=== PATIENT | male | born 1965 | race Caucasian/White ===

== ENCOUNTER 2016-07-27 06:37 | Day surgery (SDC) | payer OTHER ==
[2016-07-27] MEDS ORDERED: EPINEPHRINE 1:1000 1 ML AMP ONE (06:47)
[2016-07-27] MEDS ORDERED: Lactated Ringers 1,000 ML IV ONE (06:47)
[2016-07-27] MEDS ORDERED: Marcaine 0.5% SDV 10 ML ONE (06:48)
[2016-07-27] MEDS ORDERED: XYLOCAINE 1%/Epi 1:100000 MDV 20 ML ONE (06:48)
[2016-07-27] MEDS ORDERED: Pepcid 20 MG VIAL IV ONE (07:20)
[2016-07-27] MEDS ORDERED: Lactated Ringers 1,000 ML IV SCH (07:30)
[2016-07-27] MEDS ORDERED: CEFAZOLIN 2 GM-D5W BAG** 50 ML IV SCH (07:30)
[2016-07-27] MEDS ORDERED: Ephedrine Sulfate 50 MG/ML IJ ONE (08:00)
[2016-07-27] MEDS ORDERED: SUBLIMAZE 100 MCG/2 ML IV ONE (08:00)
[2016-07-27] MEDS ORDERED: TORAdol 30 mg Injection IJ ONE (08:00)
[2016-07-27] MEDS ORDERED: DIPRIVAN 200 MG/20 ML IV ONE (08:00)
[2016-07-27] MEDS ORDERED: Decadron 4 MG INJ IV ONE (08:00)
[2016-07-27] MEDS ORDERED: Zofran 4 MG/2 ML VIAL IV ONE (08:00)
--- NOTE | 2016-07-27 08:37 | XRAY ---
Indication: Preop exam. Comparison: None Bilateral AP and lateral left knee obtained weightbearing demonstrates joint spaces preserved. Tiny left patellar spurring and faint vascular calcifications bilaterally. No other bony, articular, or soft tissue abnormalities.
[2016-07-27] MEDS ORDERED: ON-Q PUMP 1 in Marcaine Mpf 0.5% Vial 30 Ml*** 270 ML IV SCH (10:15)
[2016-07-27] MEDS ORDERED: SUBLIMAZE 100 MCG/2 ML ONE (10:36)
[2016-07-27 11:21] VITALS: O2SAT 92
--- NOTE | 2016-07-27 11:32 | OP ---
SURGERY DATE/TIME: 07/27/2016911 PREOPERATIVE DIAGNOSIS: Internal derangement of the left knee. POSTOPERATIVE DIAGNOSES: 1) Medial meniscus tear left knee. 2) Lateral meniscal tear left knee. 3) Chondromalacia patella left knee. PROCEDURES: 1) Left knee arthroscopy with debridement of medial meniscus. 2) Left knee arthroscopy with debridement of lateral meniscus. 3) Left knee arthroscopy with chondroplasty patella. 4) Long leg splint. 5) On-Q pump catheter postoperative pain. SURGEON: Marcio Gardner D.O. DOUBLE BACKER: None. ANESTHESIA: General per MEDICAL BILLING AND CODING SPECIALIST. ESTIMATED BLOOD LOSS: Minimal. DESCRIPTION OF PROCEDURE: The patient is taken to the operative suite and placed in supine position, given a general anesthetic, placed supine. Areas were well padded. Sterile prepped and draped left leg. Tourniquet applied, inflated, exsanguinated to 50. Suprapatellar area entered with Egress cannula, 0.5% Marcaine, 1% Lidocaine with epinephrine 60 cc placed into the knee. Infralateral aspect of the knee entered with camera and inflow established there. Spinal needle stab incision and shaver placed over the medial joint line and diagnostic arthroscopy begun. The meniscal tissue was assessed. Both tears were seen radial in type. Posteriorly ACL was intact. Chondral surface of the patella on either side of medial and lateral patellar facets were softened and required tightening over a 10 mm area probably outer bridge changes of 1 maybe 2 at the most on both poles of the patella laterally and medially. After tightening these up with ArthroCare device at a #7 setting, pictures were taken. Probe is done. I turned attention to the menisci and trimmed these both up with punch forceps and the posterior horns into the red-white zones and umair and then cleaned these up and remanded these to the back table. The knee was drained of saline. On-Q pump catheter is placed in separate entry point astride the medial joint line in an extra-articular position. Ethilon suture placed in the portal sites. Long leg splint applied. Burleson compressive dressing and Cryo/Cuff.
[2016-07-27 12:21] VITALS: BP 142/92; PULSE 80
== END 2016-07-27 12:10 | disposition home or self-care (01) ==
LOC: SDC 06:37
PROVIDERS: ATTEND Orthopaedic Surgery
PROC: 0SQD4ZZ Repair Left Knee Joint, Percutaneous Endoscopic Approach (ICD-10-PCS; principal; 2016-07-27)
DX: M23.92 Unspecified internal derangement of left knee (principal); S83.242A Other tear of medial meniscus, current injury, left knee, initial encounter; S83.282A Other tear of lateral meniscus, current injury, left knee, initial encounter; M22.42 Chondromalacia patellae, left knee; M25.562 Pain in left knee
CPT/HCPCS: 01382; 73560; J0171; J0690; J1100; J1885; J2405; J2704; J3010; L1830

== ENCOUNTER 2017-04-21 12:44 | Emergency (ER) | payer OTHER ==
[2017-04-21 12:55] VITALS: O2SAT 96
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
[2017-04-21 13:12] VITALS: BP 134/91; PULSE 74
== END 2017-04-21 13:21 | disposition home or self-care (01) ==
LOC: ED 12:44
DX: I86.4 Gastric varices (principal)
CPT/HCPCS: 99281

== ENCOUNTER 2018-06-21 15:10 | Observation (INO) | payer OTHER ==
[2018-06-21] MEDS ORDERED: Sodium Chloride 0.9% 1000 ML 1,000 ML ONE ×2 (15:41→17:09)
[2018-06-21] MEDS ORDERED: Sodium Chloride 0.9% 1000 ML 1,000 ML IV STA ×2 (15:44→15:46)
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
[2018-06-21 16:00] LABS: BASOPHIL % 0.2 % (0.0-0.4); Basophil (Absolute #) 0.01 (0-0.4); Eosinophil % 2.4 % (0.00-5.0); Eosinophil (Absolute #) 0.12 (0-0.5); Granulocyte Absolute (ANC) 3.11 (1.4-6.9); Granulocytes % 63.4 % (36.0-66.0); Hematocrit 42.3 % (42-50); Hemoglobin 14.6 gm/dl (12.5-18.0); Lymphocyte (Absolute #) 1.28 (1.0-4.6); Lymphocytes % 26.1 % (24.0-44.0); Mean Cell Volume 96.6 fl (78-100); Mean Corpuscular Hemoglobin 33.3 pg (26-32); Mean Corpuscular Hgb Concent. 34.5 g/dl (32-36); Mean Platelet Volume 11.2 fl (6-9.5); Monocyte (Absolute #) 0.39 (0.0-1.3); Monocytes % 7.9 % (0.0-12.0); Platelet Count 115 K/mm3 (150-450); Red Blood Count 4.38 M/mm3 (4.1-5.6); Red Cell Distribution Width 11.6 % (11.5-14.0); White Blood Count 4.9 K/mm3 (4.0-10.5)
[2018-06-21 16:09] LABS: ALBUMIN 3.7 g/dL (3.5-5.0); ALKALINE PHOSPHATASE 108 U/L (38-126); ANION GAP 16.7 MEQ/L (5-15); BLOOD UREA NITROGEN 10 mg/dL (9-20); CHLORIDE 88 mmol/L (98-107); Calcium 9.5 mg/dL (8.4-10.2); Carbon Dioxide 28 mmol/L (22-30); Creatinine 1 0.53 mg/dL (0.66-1.25); Potassium 4.8 mmol/L (3.5-5.1); SGOT/AST 81 U/L (17-59); SGPT/ALT 69 U/L (0-50); SODIUM 129 mmol/L (137-145); Total Protein 7.1 g/dL (6.3-8.2)
[2018-06-21 16:23] LABS: ETHYL ALCOHOL < 10 mg/dL (0-10); Glucose 753 mg/dL (74-106)
[2018-06-21 16:23] LABS: Appearance CLEAR (CLEAR); Bilirubin NEGATIVE (NEGATIVE); Blood NEGATIVE Ery/ul (0-5); Glucose >=500 mg/dL (NEGATIVE); Ketones TRACE (NEGATIVE); Leukocyte Esterase NEGATIVE (NEGATIVE); Nitrite NEGATIVE (NEGATIVE); Protein,Urine Dip NEGATIVE (Negative); Specific Gravity 1.025 (1.005-1.025); Urobilinogen NEGATIVE mg/dL (0-1)
[2018-06-21 17:05] LABS: VBG BASE EXCESS 1.3 (-2.0-2.0); VBG CARBOXYHEMOGLOBIN 2.7 % T HGB (0.0-6.9); VBG HCO3- 28.5 meq/L (22-28); VBG POTASSIUM 4.6 (3.5-5.1); VBG pH 7.33 (7.32-7.42)
[2018-06-21] MEDS ORDERED: NovoLIN R IV ONE (18:29)
[2018-06-21] MEDS ORDERED: NovoLIN R ONE (18:34)
[2018-06-21] MEDS ORDERED: Sodium Chloride 0.9% 1000 ML 1,000 ML IV SCH (21:15)
[2018-06-21] MEDS: NovoLOG Insulin SQ PRN (22:15)
[2018-06-22] MEDS: NovoLOG Insulin SQ PRN ×2 (00:18→04:27)
[2018-06-22 05:58] LABS: BASOPHIL % 0.3 % (0.0-0.4); Basophil (Absolute #) 0.02 (0-0.4); Eosinophil % 3.3 % (0.00-5.0); Eosinophil (Absolute #) 0.23 (0-0.5); Granulocyte Absolute (ANC) 3.67 (1.4-6.9); Granulocytes % 52.7 % (36.0-66.0); Hematocrit 39.8 % (42-50); Hemoglobin 13.9 gm/dl (12.5-18.0); Lymphocyte (Absolute #) 2.47 (1.0-4.6); Lymphocytes % 35.4 % (24.0-44.0); Mean Cell Volume 95.7 fl (78-100); Mean Corpuscular Hemoglobin 33.4 pg (26-32); Mean Corpuscular Hgb Concent. 34.9 g/dl (32-36); Mean Platelet Volume 10.9 fl (6-9.5); Monocyte (Absolute #) 0.58 (0.0-1.3); Monocytes % 8.3 % (0.0-12.0); Platelet Count 126 K/mm3 (150-450); Red Blood Count 4.16 M/mm3 (4.1-5.6); Red Cell Distribution Width 11.4 % (11.5-14.0)
[2018-06-22 06:15] LABS: ALBUMIN 3.2 g/dL (3.5-5.0); ALKALINE PHOSPHATASE 79 U/L (38-126); ANION GAP 11.8 MEQ/L (5-15); BLOOD UREA NITROGEN 6 mg/dL (9-20); CHLORIDE 101 mmol/L (98-107); Calcium 8.8 mg/dL (8.4-10.2); Carbon Dioxide 26 mmol/L (22-30); Creatinine 1 0.37 mg/dL (0.66-1.25); Glucose 225 mg/dL (74-106); Potassium 3.2 mmol/L (3.5-5.1); SGOT/AST 73 U/L (17-59); SGPT/ALT 62 U/L (0-50); SODIUM 136 mmol/L (137-145); Total Protein 6.6 g/dL (6.3-8.2)
[2018-06-22 07:23] VITALS: BP 114/68; PULSE 80
--- NOTE | 2018-06-22 07:55 | PCM.DCORD ---
- Discharge Discharge Date: 06/22/18 Condition: Good Prescriptions: No Action Duloxetine HCl [Cymbalta] 30 mg DAILY predniSONE [Prednisone] 5 mg DAILY Follow up with: JOHN WOO [Primary Care Provider] - 1 Week
[2018-06-22] MEDS ORDERED: Glucophage 500 MG PO SCH (08:00)
--- NOTE | 2018-06-22 08:14 | SSS ---
DISCHARGE DIAGNOSIS: NEW ONSET DIABETES MELLITUS WITH HYPEROSMOLAR STATE. HISTORY: The patient is a 52 year-old white male patient who apparently had been feeling bad over the past three weeks, being very thirsty and having very much increase in urination. He reports he lost approximately 15 pounds over that time frame. He apparently was sent to the lab for lab studies and was found to have a sugar over 600. He was therefore contacted and asked to proceed to the emergency room for evaluation and treatment. He was subsequently admitted to the hospital for IV fluids and diabetic management. By the morning of 06/22/2018 the patient's blood sugar was down to 225. His BUN was 6, creatinine 0.37, potassium 3.2, sodium 136. His liver enzymes are slightly elevated with an AST of 73 and ALT of 62. His CBC was normal. PAST MEDICAL HISTORY: Otherwise remarkable for no significant medical problems. HOME MEDICATIONS: Duloxetine 30 mg a day, prednisone for rheumatoid arthritis at 5 mg daily. ALLERGIES: ERYTHROMYCIN BASE. PHYSICAL EXAMINATION: On initial evaluation on admission his temperature was 98.8F, pulse 89, respiratory rate 12, blood pressure 111/67. O2 saturation 95%. HEENT: Normocephalic, atraumatic. Pupils equal round reactive to light. Extraocular movements intact. Oropharynx is dry. NECK: Supple without lymphadenopathy, thyromegaly or JVD. CHEST: Clear to auscultation with good air movement bilaterally. HEART: Regular rate and rhythm without murmurs, rubs or gallops. ABDOMEN: Soft. No hepatosplenomegaly or masses. EXTREMITIES: Without clubbing, cyanosis or edema. NEUROLOGIC: The patient is alert and oriented x3. LAB DATA AND TESTS: Other laboratory studies reveal his urine to be clear. Specific gravity 1.025, greater than 500 glucose but is otherwise essentially negative. His sugar by the time he reached the emergency room was 753, BUN 10, creatinine 0.53. He had venous blood gas of 7.33, pCO2 54 and normal CBC. HOSPITAL COURSE: The patient was given IV fluids and insulin bringing his sugar down nicely. He was felt to be ready for discharge home with diabetic education, 2,000 calorie ADA diet, diabetic test strips and an Accu-Chek monitor. He is to be on Metformin 500 mg b.i.d. and check his sugars twice a day. He is given sliding scale coverage for sugars above 300 to take 10 units of subcu and for sugars above 400 to take 20 units. If the sugars get above that he is to call me for further instructions or return to the hospital. He is instructed to stay away from sugary drinks and starches. He will have a return appointment in my office in one week for further evaluation and management.
--- NOTE | 2018-06-22 08:15 | PCM.DCORD ---
- Discharge Discharge Date: 06/22/18 Prescriptions: New Metformin HCl 500 mg [Glucophage 500 MG] 500 mg PO BIDWM 30 Days #60 tablet Insulin Lispro [Humalog] 100 unit SQ UD PRN #100 ml PRN Reason: Hyperglycemia Continue Duloxetine HCl [Cymbalta] 30 mg DAILY predniSONE [Prednisone] 5 mg DAILY Follow up with: JOHN WOO [Primary Care Provider] - 1 Week
[2018-06-22 08:20] VITALS: O2SAT 94
== END 2018-06-22 11:30 | disposition home or self-care (01) ==
LOC: ED 15:10 → MED SURG 21:06
PROVIDERS: ADMIT Family Medicine; ATTEND Family Medicine
DX: E11.9 Type 2 diabetes mellitus without complications (principal); M06.9 Rheumatoid arthritis, unspecified; Z79.899 Other long term (current) drug therapy
CPT/HCPCS: 36000; 36415; 71046; 80053; 81001; 82306; 82805; 82962; 83036; 84403; 84439; 84443; 84681; 85025; 86701; 86702; 87389; 93005; 93041; 93268; 94762; 96360; 96374; 99285; G0378; G0480; 80307; A9270-GY

== ENCOUNTER 2018-12-24 15:41 | Emergency (ER) | payer OTHER ==
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
[2018-12-24 16:59] VITALS: BP 147/86; PULSE 88
[2018-12-24] MEDS ORDERED: TORAdol 30 mg Injection ONE (17:02)
[2018-12-24] MEDS ORDERED: TORAdol 30 mg Injection IV ONE (17:04)
[2018-12-24 17:10] VITALS: O2SAT 97
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
== END 2018-12-24 17:22 | disposition home or self-care (01) ==
LOC: ED 15:41
DX: S01.01XA Laceration without foreign body of scalp, initial encounter (principal); V53.6XXA Passenger in pick-up truck or van injured in collision with car, pick-up truck or van in traffic accident, initial encounter
CPT/HCPCS: 12013; 36000; 70450; 72125; 96374; 99285; J1885

== ENCOUNTER 2019-08-01 10:36 | Emergency (ER) | payer OTHER ==
[2019-08-01 11:36] LABS: Absolute Neutrophil Ct (ANC) 2.96 (1.4-6.9); BASOPHIL % 0.8 % (0.0-0.4); Basophil (Absolute #) 0.05 (0-0.4); Eosinophil % 5.3 % (0.00-5.0); Eosinophil (Absolute #) 0.34 (0-0.5); Hematocrit 46.4 % (42-50); Lymphocyte (Absolute #) 2.22 (1.0-4.6); Lymphocytes % 34.4 % (24.0-44.0); Mean Corpuscular Hemoglobin 34.5 pg (26-32); Mean Corpuscular Hgb Concent. 34.5 g/dl (32-36); Mean Platelet Volume 9.2 fl (7.5-11.0); Monocyte (Absolute #) 0.88 (0.0-1.3); Monocytes % 13.6 % (0.0-12.0); Neutrophil % 45.9 % (36.0-66.0); Platelet Count 153 K/mm3 (150-450); Red Blood Count 4.64 M/mm3 (4.1-5.6); Red Cell Distribution Width 12.5 % (11.5-14.0); White Blood Count 6.5 K/mm3 (4.0-10.5)
[2019-08-01 11:44] LABS: INR 1.09 (0.8-3.0); PROTIME 12.3 SECONDS (8.83-12.87)
[2019-08-01 11:46] LABS: Appearance CLEAR (CLEAR); Bacteria RARE /HPF (NEGATIVE); Bilirubin SMALL (NEGATIVE); Blood NEGATIVE Ery/ul (0-5); Glucose NEGATIVE (NEGATIVE); Hyaline Casts 0-2 /LPF (0-2); Ketones NEGATIVE (NEGATIVE); Leukocyte Esterase NEGATIVE (NEGATIVE); Mucus SLIGHT /HPF (NEGATIVE); Nitrite NEGATIVE (NEGATIVE); Protein,Urine Dip 30 (Negative); Specific Gravity 1.035 (1.005-1.025); Urobilinogen 4 mg/dL (0-1)
[2019-08-01 11:47] LABS: PTT 38.9 SECONDS (24.1-36.1)
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
[2019-08-01 11:52] LABS: ALBUMIN 4.4 g/dL (3.5-5.0); ALKALINE PHOSPHATASE 90 U/L (38-126); ANION GAP 11.5 MEQ/L (5-15); BLOOD UREA NITROGEN 23 mg/dL (9-20); CHLORIDE 107 mmol/L (98-107); Calcium 9.4 mg/dL (8.4-10.2); Carbon Dioxide 28 mmol/L (22-30); Creatinine 1 0.82 mg/dL (0.66-1.25); Glucose 107 mg/dL (74-106); Potassium 4.2 mmol/L (3.5-5.1); SGOT/AST 40 U/L (17-59); SGPT/ALT 25 U/L (0-50); SODIUM 142 mmol/L (137-145); Total Protein 8.4 g/dL (6.3-8.2)
[2019-08-01 12:01] LABS: Barbiturate,Urine NEGATIVE (NEGATIVE); Benzodiazepine,Urine NEGATIVE (NEGATIVE); Cocaine,Urine NEGATIVE (NEGATIVE); Methadone,Urine NEGATIVE (NEGATIVE); Opiate,Urine POSITIVE (NEGATIVE); PCP,Urine NEGATIVE (NEGATIVE); THC,Urine NEGATIVE (NEGATIVE)
--- NOTE | 2019-08-01 12:01 | XRAY ---
Indication: Confusion and weakness. Multiple contiguous axial images obtained through the head without contrast. Comparison: December 24, 2018. Stable mild periventricular degenerative micro-ischemia bilaterally, remote left external capsule lacunar infarct, and small focus old left occipital lobe infarct. New right external capsule remote lacunar infarct. No acute intracranial hemorrhage, abnormal extra-axial fluid collection, or mass effect. Fourth ventricle is midline without hydrocephalus. Bony calvarium intact. Visualized paranasal sinuses and mastoid air cells are clear. Impression: Degenerative micro-ischemia, remote bilateral external capsule lacunar infarcts, and old left occipital lobe infarct. No acute intracranial abnormalities.
--- NOTE | 2019-08-01 12:07 | XRAY ---
Indication: Confusion. Comparison: June 21, 2018. Portable chest again demonstrates normal heart and lungs. Bony thorax intact again with mild degenerative changes. No new/acute findings.
[2019-08-01 12:27] LABS: Amphetamine,Urine POSITIVE (NEGATIVE)
[2019-08-01 13:18] VITALS: O2SAT 96
[2019-08-01] MEDS ORDERED: Rocephin 1000 MG INJ** 1,000 MG in Sodium Chloride 0.9% 100 ML IVPB 100 ML IV ONE (13:27)
[2019-08-01] MEDS ORDERED: BABY ASPIRIN 81 MG CHEW PO ONE (13:28)
[2019-08-01] MEDS ORDERED: Sodium Chloride 0.9% 1000 ML 1,000 ML IV SCH (13:30)
[2019-08-01] MEDS ORDERED: BABY ASPIRIN 81 MG CHEW ONE (13:53)
[2019-08-01] MEDS ORDERED: ROCEPHIN 1 Gm-D5w 50 ml Bag** 1 G/50 ML IVPB IV ONE (13:54)
[2019-08-01] MEDS ORDERED: Sodium Chloride 0.9% 1000 ML 1,000 ML ONE (13:54)
[2019-08-01 14:20] VITALS: PULSE 76
[2019-08-01 17:33] VITALS: BP 118/77
== END 2019-08-01 19:05 | disposition short-term general hospital (02) ==
LOC: ED 10:36
DX: R46.89 Other symptoms and signs involving appearance and behavior (principal); N39.0 Urinary tract infection, site not specified; F19.20 Other psychoactive substance dependence, uncomplicated; Z71.51 Drug abuse counseling and surveillance of drug abuser; R93.0 Abnormal findings on diagnostic imaging of skull and head, not elsewhere classified
CPT/HCPCS: 36000; 36415; 70450; 71045; 80053; 80307; 81001; 82140; 84484; 85025; 85610; 85730; 87086; 93005; 94760; 96365; 99285; J0696; A9270-GY

== ENCOUNTER 2019-08-08 10:28 | Emergency (ER) | payer OTHER ==
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
[2019-08-08 11:08] LABS: Absolute Neutrophil Ct (ANC) 4.29 (1.4-6.9); BASOPHIL % 0.4 % (0.0-0.4); Basophil (Absolute #) 0.03 (0-0.4); Eosinophil % 4.9 % (0.00-5.0); Eosinophil (Absolute #) 0.38 (0-0.5); Hematocrit 42.3 % (42-50); Hemoglobin 15.1 gm/dl (12.5-18.0); Lymphocyte (Absolute #) 2.32 (1.0-4.6); Mean Cell Volume 97.5 fl (78-100); Mean Corpuscular Hemoglobin 34.8 pg (26-32); Mean Corpuscular Hgb Concent. 35.7 g/dl (32-36); Mean Platelet Volume 9.7 fl (7.5-11.0); Monocyte (Absolute #) 0.72 (0.0-1.3); Monocytes % 9.3 % (0.0-12.0); Neutrophil % 55.4 % (36.0-66.0); Platelet Count 164 K/mm3 (150-450); Red Blood Count 4.34 M/mm3 (4.1-5.6); Red Cell Distribution Width 12.5 % (11.5-14.0); White Blood Count 7.7 K/mm3 (4.0-10.5)
--- NOTE | 2019-08-08 11:09 | XRAY ---
Indication: Right facial droop. Stroke like symptoms. Multiple contiguous axial images obtained through the head without contrast. Comparison: August 01, 2019. Stable mild periventricular degenerative micro-ischemia bilaterally, bilateral external capsule remote lacunar infarcts, and small left occipital lobe infarct. No acute intracranial hemorrhage, abnormal extra-axial fluid collection, or mass effect. Fourth ventricle is midline without hydrocephalus. Babin-white matter differentiation is preserved. Bony calvarium intact. Visualized paranasal sinuses and mastoid air cells are clear. Impression: Stable nonacute CT head without contrast exam again demonstrating degenerative micro-ischemia, remote bilateral external capsule lacunar infarcts, and old left occipital lobe infarct. MRI brain may yield further information if there remains further clinical concern.
[2019-08-08 11:11] LABS: ANION GAP 14.1 MEQ/L (5-15); BLOOD UREA NITROGEN 14 mg/dL (9-20); CHLORIDE 102 mmol/L (98-107); Calcium 9.7 mg/dL (8.4-10.2); Carbon Dioxide 27 mmol/L (22-30); Creatinine 1 0.76 mg/dL (0.66-1.25); Glucose 131 mg/dL (74-106); Potassium 3.7 mmol/L (3.5-5.1); SODIUM 139 mmol/L (137-145)
--- NOTE | 2019-08-08 13:37 | XRAY ---
Indication: Right facial drooping. Involuntary facial movements. Sagittal, coronal, and axial MRI brain was performed without contrast using T1, T2, FLAIR, diffusion, and ADC sequences. Comparison: None Several sequences are slightly degraded by motion artifact. Study is still diagnostic. Age-appropriate global atrophy and mild periventricular degenerative micro-ischemia signal bilaterally. Right anterior parietal lobe demonstrates moderate sized focus of periventricular restricted signal on diffusion imaging favoring acute ischemia. Left posterior parietal demonstrates small multifocal cortical and deep white matter restricted signal also favoring acute ischemia. Largest focus 11 mm high left parietal lobe. Old bilateral external capsule lacunar infarcts and old small left occipital lobe infarct. No acute intracranial hemorrhage, abnormal extra-axial fluid collection, or mass effect. Fourth ventricle is midline. 7/8 cranial nerve complex bilaterally symmetric. Temporal segment of the left internal carotid artery demonstrates signal favoring slow sluggish flow. Normal flow void signal within the remaining major intracerebral circulation. Normal appearing craniocervical junction and sella turcica. Paranasal sinuses are clear. Impression: 1. Mild motion artifact. 2. Right anterior parietal acute ischemia as detailed. Smaller multifocal left posterior parietal lobe acute ischemia. No acute hemorrhage/mass effect. Multifocal and bilateral ischemia concerning for embolic stroke. 3. Slow sluggish flow signal left internal carotid artery. 4. Remote appearing bilateral external capsule lacunar infarcts and remote left occipital lobe infarct. 5. Global atrophy and degenerative micro-ischemia within normal limits for patient's age.
[2019-08-08 14:28] VITALS: BP 144/96; PULSE 89; O2SAT 98
[2019-08-08 15:05] LABS: Appearance CLEAR (CLEAR); Bilirubin NEGATIVE (NEGATIVE); Blood NEGATIVE Ery/ul (0-5); Glucose NEGATIVE (NEGATIVE); Ketones NEGATIVE (NEGATIVE); Leukocyte Esterase NEGATIVE (NEGATIVE); Mucus SLIGHT /HPF (NEGATIVE); Nitrite NEGATIVE (NEGATIVE); Protein,Urine Dip NEGATIVE (Negative); Specific Gravity 1.019 (1.005-1.025); Urobilinogen 4 mg/dL (0-1)
[2019-08-08 15:20] LABS: Barbiturate,Urine NEGATIVE (NEGATIVE); Benzodiazepine,Urine NEGATIVE (NEGATIVE); Cocaine,Urine NEGATIVE (NEGATIVE); Methadone,Urine NEGATIVE (NEGATIVE); Opiate,Urine NEGATIVE (NEGATIVE); PCP,Urine NEGATIVE (NEGATIVE); THC,Urine NEGATIVE (NEGATIVE)
[2019-08-08 15:43] LABS: Amphetamine,Urine POSITIVE (NEGATIVE)
== END 2019-08-08 15:18 | disposition left against medical advice (07) ==
LOC: ED 10:28
DX: I67.82 Cerebral ischemia (principal)
CPT/HCPCS: 36000; 36415; 70450; 70551; 80048; 80307; 81001; 85025; 93005; 93041; 94760; 99284; 99291

== ENCOUNTER 2019-08-08 16:03 | Emergency (ER) | payer OTHER ==
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
[2019-08-08 17:57] VITALS: BP 123/64; PULSE 106; O2SAT 93
== END 2019-08-08 18:50 | disposition short-term general hospital (02) ==
LOC: ED 16:03
DX: I63.9 Cerebral infarction, unspecified (principal); I65.29 Occlusion and stenosis of unspecified carotid artery; F15.10 Other stimulant abuse, uncomplicated
CPT/HCPCS: 99284; 99291

== ENCOUNTER 2020-01-17 12:43 | Emergency (ER) | payer OTHER ==
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
[2020-01-17 14:06] LABS: Absolute Neutrophil Ct (ANC) 3.76 (1.4-6.9); BASOPHIL % 0.3 % (0.0-0.4); Basophil (Absolute #) 0.02 (0-0.4); Eosinophil % 2.7 % (0.00-5.0); Eosinophil (Absolute #) 0.18 (0-0.5); Hematocrit 39.3 % (42-50); Hemoglobin 13.3 gm/dl (12.5-18.0); Lymphocyte (Absolute #) 2.04 (1.0-4.6); Lymphocytes % 30.6 % (24.0-44.0); Mean Cell Volume 99.5 fl (78-100); Mean Corpuscular Hemoglobin 33.7 pg (26-32); Mean Corpuscular Hgb Concent. 33.8 g/dl (32-36); Mean Platelet Volume 9.5 fl (7.5-11.0); Monocyte (Absolute #) 0.67 (0.0-1.3); Neutrophil % 56.4 % (36.0-66.0); Platelet Count 104 K/mm3 (150-450); Red Blood Count 3.95 M/mm3 (4.1-5.6); Red Cell Distribution Width 12.4 % (11.5-14.0); White Blood Count 6.7 K/mm3 (4.0-10.5)
--- NOTE | 2020-01-17 14:26 | XRAY ---
Indication: Right arm and left neck swelling. Status post left carotid endarterectomy January 15, 2020. Two-dimensional sonogram and color Doppler imaging of the major venous vessels of the left and right upper extremity performed. Comparison: None No thrombus seen in the visualized left and right internal jugular, subclavian, axillary, cephalic, basilic, brachial, median cubital, radial, and ulnar veins. Veins demonstrate normal compressibility. Venous waveforms are normal. Impression: Left and right upper extremities negative for DVT.
[2020-01-17 14:31] LABS: ALBUMIN 3.4 g/dL (3.5-5.0); ALKALINE PHOSPHATASE 72 U/L (38-126); ANION GAP 7.2 MEQ/L (5-15); BLOOD UREA NITROGEN 10 mg/dL (9-20); CHLORIDE 106 mmol/L (98-107); Calcium 8.6 mg/dL (8.4-10.2); Carbon Dioxide 27 mmol/L (22-30); Creatinine 1 0.53 mg/dL (0.66-1.25); Glucose 122 mg/dL (74-106); NT PRO BNP 378 pg/mL (0-900); Potassium 3.6 mmol/L (3.5-5.1); SGOT/AST 55 U/L (17-59); SGPT/ALT 45 U/L (0-50); SODIUM 137 mmol/L (137-145); Total Protein 6.6 g/dL (6.3-8.2)
[2020-01-17 15:18] VITALS: BP 135/85; PULSE 85; O2SAT 96
== END 2020-01-17 15:27 | disposition home or self-care (01) ==
LOC: ED 12:43
DX: M79.89 Other specified soft tissue disorders (principal); Z46.2 Encounter for fitting and adjustment of other devices related to nervous system and special senses; Z98.890 Other specified postprocedural states; I25.2 Old myocardial infarction; E11.9 Type 2 diabetes mellitus without complications; K21.9 Gastro-esophageal reflux disease without esophagitis; N18.2 Chronic kidney disease, stage 2 (mild); M19.90 Unspecified osteoarthritis, unspecified site
CPT/HCPCS: 36415; 80053; 83880; 84484; 85025; 93005; 93041; 93970; 99284

== ENCOUNTER 2020-06-13 16:15 | Emergency (ER) | payer OTHER ==
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
[2020-06-13 17:21] VITALS: BP 118/75; PULSE 103; O2SAT 98
[2020-06-13 17:52] LABS: INR 1.23 (0.8-3.0); PROTIME 13.9 SECONDS (8.83-12.87)
[2020-06-13 17:56] LABS: ALBUMIN 4.1 g/dL (3.5-5.0); ALKALINE PHOSPHATASE 60 U/L (38-126); ANION GAP 12.3 MEQ/L (5-15); BLOOD UREA NITROGEN 11 mg/dL (9-20); CHLORIDE 103 mmol/L (98-107); Calcium 9.8 mg/dL (8.4-10.2); Carbon Dioxide 25 mmol/L (22-30); Creatinine 1 0.67 mg/dL (0.66-1.25); EST GLOMERULAR FILTRATION RATE > 60.0 ML/MIN; Glucose 218 mg/dL (74-106); Potassium 3.8 mmol/L (3.5-5.1); SGOT/AST 29 U/L (17-59); SGPT/ALT 26 U/L (0-50); SODIUM 137 mmol/L (137-145); Total Protein 7.4 g/dL (6.3-8.2)
[2020-06-13 17:57] LABS: ACETAMINOPHEN < 10 ug/ml (10-30); ETHYL ALCOHOL < 10 mg/dL (0-10); SALICYLATE < 1.0 mg/dL (2-20)
[2020-06-13 17:58] LABS: Absolute Neutrophil Ct (ANC) 3.62 (1.4-6.9); BASOPHIL % 0.3 % (0.0-0.4); Basophil (Absolute #) 0.02 (0-0.4); Eosinophil % 3.4 % (0.00-5.0); Eosinophil (Absolute #) 0.26 (0-0.5); Hematocrit 42.7 % (42-50); Hemoglobin 14.4 gm/dl (12.5-18.0); Lymphocyte (Absolute #) 3.12 (1.0-4.6); Lymphocytes % 40.6 % (24.0-44.0); Mean Cell Volume 97.5 fl (78-100); Mean Corpuscular Hemoglobin 32.9 pg (26-32); Mean Corpuscular Hgb Concent. 33.7 g/dl (32-36); Mean Platelet Volume 9.5 fl (7.5-11.0); Monocyte (Absolute #) 0.67 (0.0-1.3); Monocytes % 8.7 % (0.0-12.0); Platelet Count 163 K/mm3 (150-450); Red Blood Count 4.38 M/mm3 (4.1-5.6); Red Cell Distribution Width 12.4 % (11.5-14.0); White Blood Count 7.7 K/mm3 (4.0-10.5)
[2020-06-13 18:58] LABS: Amphetamine,Urine NEGATIVE (NEGATIVE); Barbiturate,Urine NEGATIVE (NEGATIVE); Benzodiazepine,Urine NEGATIVE (NEGATIVE); Cocaine,Urine NEGATIVE (NEGATIVE); Methadone,Urine NEGATIVE (NEGATIVE); Opiate,Urine NEGATIVE (NEGATIVE); PCP,Urine NEGATIVE (NEGATIVE); THC,Urine NEGATIVE (NEGATIVE)
--- NOTE | 2020-06-13 20:20 | XRAY ---
Exam: CT of the head without IV contrast from 06/13/2020. CTDI: 53.92 mGy Comparison: CT of the head without IV contrast from 08/08/2019 and MRI of the brain without IV contrast from 08/08/2019. Indication: 54-year-old male with confusion, dizziness, lightheadedness, altered mental status/memory loss; patient tripped and fell, but did not hit head. Technique: Non-IV contrast axial images were obtained through the brain. Reconstructed coronal and sagittal images were created and reviewed. Findings: The ventricles are within normal limits of size. No focal mass effect or midline shift is seen. I see no acute intracranial parenchymal hemorrhage, subarachnoid hemorrhage, or abnormal extra-axial fluid collection. Moderate chronic ischemic changes are seen within the periventricular white matter, most pronounced in the right frontal and right parietal white matter. These latter findings are new since the prior CT study of 08/08/2019, although the prior diffusion weighted images of the head MRI from 08/08/2019 suggestive acute ischemic disease within the right frontal and anterior right parietal region at that time. In fact, the prior MRI suggested bilateral multifocal acute ischemic disease, probably embolic. Small bilateral basal ganglia infarcts are again seen. A left occipital lobe infarct is present which appears to be more prominent as compared to 08/08/2019. Nevertheless, this may represent a chronic finding. There is also subtle low-attenuation ischemic change within the periventricular white matter of the upper left cerebral convexity. Correlate clinically as to whether further investigation with a repeat MRI of the brain including diffusion-weighted imaging is needed. Mild generalized cerebral and cerebellar volume loss is present. Vascular calcification is seen within both distal vertebral arteries and the cavernous portion of both internal carotid arteries. The visualized paranasal sinuses appear clear. The orbits appear grossly unremarkable. The mastoid air cells are clear without effusion. The middle ear cavities appear grossly unremarkable. I believe there is some cerumen deep within both external auditory canals. The calvarium of the skull appears intact without evidence of fracture. No other significant bone lesion is seen within the calvarium of the skull. Impression: 1. No acute intracranial bleed is seen. 2. Fairly extensive bilateral ischemic changes are seen within both cerebral hemispheres which I believe are likely chronic. Correlate clinically as to whether further investigation with a follow-up MRI of the brain to include diffusion weighted imaging is needed to exclude a subacute or acute ischemic event superimposed upon chronic changes.
[2020-06-13 20:37] LABS: Appearance CLEAR (CLEAR); Bilirubin NEGATIVE (NEGATIVE); Glucose 250 mg/dL (NEGATIVE); Ketones SMALL-15 (NEGATIVE); Leukocyte Esterase NEGATIVE (NEGATIVE); Nitrite NEGATIVE (NEGATIVE); Protein,Urine Dip NEGATIVE (Negative); Specific Gravity 1.025 (1.005-1.025); Urobilinogen 2 mg/dL (0-1)
[2020-06-13 20:38] LABS: Bacteria NONE SEEN /HPF (NEGATIVE); Blood TRACE NON-HEM Ery/ul (0-5); Epithelial Cells RARE /HPF (FEW); RBC 0-2 /HPF (0-2); WBC 0-2 /HPF (0-5)
== END 2020-06-13 19:48 | disposition home or self-care (01) ==
LOC: ED 16:15
DX: Z04.89 Encounter for examination and observation for other specified reasons (principal)
CPT/HCPCS: 36000; 36415; 70450; 80053; 80307; 81001; 82140; 82947; 85025; 85610; 93005; 93041; 99284; G0480

== ENCOUNTER 2020-07-19 16:04 | Observation (INO) | payer OTHER ==
[2020-07-19] MEDS ORDERED: Sodium Chloride 0.9% 1000 ML 1,000 ML IV STA (16:44)
[2020-07-19] MEDS ORDERED: Sodium Chloride 0.9% 1000 ML 1,000 ML ONE (17:13)
--- NOTE | 2020-07-19 17:20 | XRAY ---
Indication: Dizziness and vision changes. Comparison: August 01, 2019. Portable chest again demonstrates normal heart and lungs. Bony thorax intact with mild degenerative changes and surgical clips left neck. No acute findings.
[2020-07-19 17:37] LABS: Absolute Neutrophil Ct (ANC) 3.58 (1.4-6.9); BASOPHIL % 0.5 % (0.0-0.4); Basophil (Absolute #) 0.03 (0-0.4); Eosinophil % 3.1 % (0.00-5.0); Hematocrit 42.4 % (42-50); Hemoglobin 14.8 gm/dl (12.5-18.0); Lymphocyte (Absolute #) 2.29 (1.0-4.6); Mean Cell Volume 94.9 fl (78-100); Mean Corpuscular Hemoglobin 33.1 pg (26-32); Mean Corpuscular Hgb Concent. 34.9 g/dl (32-36); Monocyte (Absolute #) 0.45 (0.0-1.3); Monocytes % 6.9 % (0.0-12.0); Neutrophil % 54.5 % (36.0-66.0); Platelet Count 162 K/mm3 (150-450); Red Blood Count 4.47 M/mm3 (4.1-5.6); Red Cell Distribution Width 11.8 % (11.5-14.0); White Blood Count 6.6 K/mm3 (4.0-10.5)
[2020-07-19 17:38] LABS: VBG BASE EXCESS 1.8 (-2.0-2.0); VBG HCO3- 28.6 meq/L (22-28); VBG HEMOGLOBIN 15.1; VBG O2 SATURATION 58.1 (95-100); VBG POTASSIUM 4.6 (3.5-5.1); VBG pH 7.34 (7.32-7.42)
[2020-07-19 17:39] LABS: VBG CARBOXYHEMOGLOBIN 8.2 % T HGB (0.0-6.9)
[2020-07-19 17:41] LABS: Appearance CLEAR (CLEAR); Bilirubin NEGATIVE (NEGATIVE); Blood NEGATIVE Ery/ul (0-5); Glucose >=500 mg/dL (NEGATIVE); Ketones NEGATIVE (NEGATIVE); Leukocyte Esterase NEGATIVE (NEGATIVE); Nitrite NEGATIVE (NEGATIVE); Protein,Urine Dip NEGATIVE (Negative); Specific Gravity 1.028 (1.005-1.025); Urobilinogen NEGATIVE mg/dL (0-1)
[2020-07-19 17:45] LABS: ALBUMIN 4.1 g/dL (3.5-5.0); ALKALINE PHOSPHATASE 73 U/L (38-126); ANION GAP 12.7 MEQ/L (5-15); BLOOD UREA NITROGEN 15 mg/dL (9-20); CHLORIDE 96 mmol/L (98-107); Calcium 9.5 mg/dL (8.4-10.2); Carbon Dioxide 28 mmol/L (22-30); Creatinine 1 0.66 mg/dL (0.66-1.25); EST GLOMERULAR FILTRATION RATE > 60.0 ML/MIN; Potassium 4.2 mmol/L (3.5-5.1); SGOT/AST 24 U/L (17-59); SGPT/ALT 24 U/L (0-50); SODIUM 132 mmol/L (137-145); Total Protein 7.1 g/dL (6.3-8.2)
[2020-07-19 17:54] LABS: Glucose 512 mg/dL (74-106)
[2020-07-19] MEDS ORDERED: HUMULIN R IV ONE (18:00)
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
[2020-07-19] MEDS ORDERED: HUMULIN R ONE (18:15)
[2020-07-19] MEDS ORDERED: MORPHINE SULFATE 2 MG INJ IV PRN (19:56)
[2020-07-19] MEDS ORDERED: TYLENOL 325 MG PO PRN (19:56)
[2020-07-19] MEDS ORDERED: Sodium Chloride 0.9% 1000 ML 1,000 ML IV SCH (19:56)
[2020-07-19] MEDS ORDERED: HUMULIN R SQ PRN (19:56)
[2020-07-19] MEDS ORDERED: Zofran 4 MG/2 ML VIAL IV PRN (19:56)
[2020-07-19] MEDS ORDERED: TRANDATE 20 MG/4 ML SYRINGE IV PRN (19:56)
[2020-07-19] MEDS ORDERED: APRESOLINE 20 MG/ML INJ IV PRN (19:56)
--- NOTE | 2020-07-19 21:16 | XRAY ---
Indication: Dizziness, blurred vision, headache, and stroke symptoms. Multiple contiguous axial images obtained through the head without contrast. Comparison: June 13, 2020. Again age-appropriate global atrophy, moderate periventricular degenerative micro-ischemia bilaterally, bilateral external capsule remote lacunar infarcts, and old left occipital lobe infarct. No acute intracranial hemorrhage, abnormal extra-axial fluid collection, or mass effect. Fourth ventricle is midline without hydrocephalus. Bony calvarium intact. Visualized paranasal sinuses and mastoid air cells are clear. Impression: Stable nonacute senile brain including remote bilateral external capsule lacunar infarcts and old left occipital lobe infarct. Comment: Preliminary interpretation was made by [facility]. No critical discrepancy.
[2020-07-19] MEDS ORDERED: Cyclobenzaprine 10 MG PO PRN (21:43)
[2020-07-19] MEDS ORDERED: ENOXAPARIN SODIUM SQ SCH (22:00)
[2020-07-19] MEDS: BUSPAR 5 MG PO SCH (22:26)
[2020-07-19] MEDS: Pepcid 20 MG VIAL IV SCH (22:26)
[2020-07-19] MEDS: Glucophage 500 MG PO SCH (22:26)
[2020-07-20 06:33] LABS: Hematocrit 42.7 % (42-50); Hemoglobin 14.7 gm/dl (12.5-18.0); Mean Cell Volume 96.2 fl (78-100); Mean Corpuscular Hemoglobin 33.1 pg (26-32); Mean Corpuscular Hgb Concent. 34.4 g/dl (32-36); Mean Platelet Volume 10.2 fl (7.5-11.0); Platelet Count 154 K/mm3 (150-450); Red Blood Count 4.44 M/mm3 (4.1-5.6); Red Cell Distribution Width 12.1 % (11.5-14.0); White Blood Count 6.2 K/mm3 (4.0-10.5)
[2020-07-20 06:39] LABS: INR 1.18 (0.8-3.0); PROTIME 13.3 SECONDS (8.83-12.87)
[2020-07-20 06:41] LABS: PTT 34.1 SECONDS (24.1-36.1)
[2020-07-20 06:51] LABS: ALBUMIN 3.9 g/dL (3.5-5.0); ALKALINE PHOSPHATASE 67 U/L (38-126); ANION GAP 10.5 MEQ/L (5-15); BLOOD UREA NITROGEN 14 mg/dL (9-20); CHLORIDE 102 mmol/L (98-107); Calcium 9.2 mg/dL (8.4-10.2); Carbon Dioxide 25 mmol/L (22-30); Creatinine 1 0.62 mg/dL (0.66-1.25); EST GLOMERULAR FILTRATION RATE > 60.0 ML/MIN; Glucose 305 mg/dL (74-106); Potassium 4.1 mmol/L (3.5-5.1); SGOT/AST 25 U/L (17-59); SGPT/ALT 23 U/L (0-50); SODIUM 133 mmol/L (137-145); Total Protein 7.2 g/dL (6.3-8.2)
[2020-07-20 08:27] VITALS: BP 110/66; PULSE 75; O2SAT 93
[2020-07-20] MEDS: Glucophage 500 MG PO SCH (08:43)
[2020-07-20] MEDS: BUSPAR 5 MG PO SCH (09:44)
[2020-07-20] MEDS: Pepcid 20 MG VIAL IV SCH (09:44)
[2020-07-20] MEDS ORDERED: Ecotrin 325 MG PO SCH (10:00)
[2020-07-20] MEDS ORDERED: PLAVIX 75 MG Tablet PO SCH (11:00)
[2020-07-20] MEDS ORDERED: ZOCOR 20MG PO SCH (11:00)
[2020-07-20] MEDS ORDERED: Cymbalta 30 MG Capsule PO SCH (11:00)
[2020-07-20] MEDS ORDERED: NAPROSYN 375 MG PO SCH (11:00)
[2020-07-20] MEDS ORDERED: ANTIVERT 25 MG PO SCH (11:00)
[2020-07-20] MEDS ORDERED: SYNTHROID 50 MCG PO SCH (11:00)
[2020-07-20] MEDS ORDERED: ENOXAPARIN SODIUM SQ SCH (22:00)
[2020-07-21] MEDS ORDERED: ECOTRIN 81 MG PO SCH (10:00)
[2020-07-21] MEDS ORDERED: NON-FORMULARY ITEM (Aspirin [Aspirin] 81 MG) PO SCH (10:00)
[2020-07-21] MEDS ORDERED: NON-FORMULARY ITEM (Rosuvastatin Calcium [Crestor] 40 MG) PO SCH (10:00)
[2020-07-21] MEDS ORDERED: NON-FORMULARY ITEM (Levothyroxine Sodium [Levothyroxine] 50 MCG) PO SCH (10:00)
--- NOTE | 2020-07-22 15:30 | SSS ---
DISCHARGE DIAGNOSIS: DIABETES MELLITUS OUT OF CONTROL. HISTORY: The patient is a 55 year old white male patient who noticed he was getting a little dizzy and having some blurred vision. He checked his sugar and found out it was above 500. He presented to the emergency room for further evaluation and management. Tele-neurology consultation was obtained for concerns about possibility of stroke but it is apparent that the patient is not having any neurologic issues in that fashion. Dizziness and blurred vision was likely due to high sugar levels. The patient is not seen often in the office and I do not believe he is checking his sugars at home very well. HOME MEDICATIONS: Duloxetine 60 mg b.i.d., Buspar 1 tablet b.i.d., Flexeril 10 mg every 8 hours PRN for back pain, Crestor 40 mg a day, aspirin 81 mg a day, Plavix 75 mg a day, levothyroxine 50 mcg a day, meclizine 25 mg t.i.d. PRN for dizziness, Naproxen 375 mg b.i.d. ALLERGIES: ERYTHROMYCIN. PHYSICAL EXAMINATION: The patient's vital signs on admission showed his temperature to be 97.9F, pulse 99, blood pressure 149/91. O2 saturation 98% on room air. HEENT: Normocephalic, atraumatic. Pupils equal round reactive to light. Extraocular movements intact. Oropharynx is pink and moist. NECK: Supple without lymphadenopathy, thyromegaly or JVD. CHEST: Clear to auscultation. HEART: Regular rate and rhythm. ABDOMEN: Soft. No palpable masses. EXTREMITIES: Without cyanosis, clubbing or edema. NEUROLOGIC: The patient is alert and oriented x3. I woke him from sleep. He already had breakfast, feeling good and wishing to go home. LAB DATA AND TESTS: The patient's laboratory studies have shown venous blood gas to be pH 7.34. CBC was entirely normal. UA was normal other than greater than 500 sugar. His glucose was 512 on admission. BUN 15, creatinine 0.66. His sodium was slightly at 132. Electrolytes were otherwise normal as were liver enzymes. Magnesium 1.7. Troponins less than 0.012 on two occasions. Hemoglobin A1C was 10.82. Repeat on his sugar the next morning was 305. His INR was 1.18. He had a CT scan of the head without contrast showing stable, nonacute senile brain with remote bilateral external capsule lacunar infarcts and old left occipital lobe infarct. HOSPITAL COURSE: At this time the patient is felt to be ready for discharge home again. He reports that he will follow up in the office next week. He is instructed to check his sugars at least four times a day. He did not list insulin on his home medication but said that he does have insulin at home. I will be sure he does have some insulin for his use and giving him a sliding scale coverage for him to use as well.
== END 2020-07-20 11:37 | disposition home or self-care (01) ==
LOC: ED 16:04 → MED SURG 19:41
PROVIDERS: ADMIT Family Medicine; ATTEND Family Medicine
DX: E11.65 Type 2 diabetes mellitus with hyperglycemia (principal); H53.8 Other visual disturbances; J44.9 Chronic obstructive pulmonary disease, unspecified; I10 Essential (primary) hypertension; E78.5 Hyperlipidemia, unspecified; Z86.73 Personal history of transient ischemic attack (TIA), and cerebral infarction without residual deficits; Z79.899 Other long term (current) drug therapy; Z79.01 Long term (current) use of anticoagulants; E78.00 Pure hypercholesterolemia, unspecified
CPT/HCPCS: 36000; 36415; 70450; 71045; 80053; 81001; 82805; 82947; 83036; 83735; 84484; 85025; 85027; 85610; 85730; 93005; 93041; 93268; 94762; 96360; 96374; 99285; G0378; Q3014; J1650; J1815; A9270-GY

== ENCOUNTER 2020-10-02 15:56 | Emergency (ER) | payer OTHER ==
[2020-10-02 16:30] LABS: Absolute Neutrophil Ct (ANC) 4.92 (1.4-6.9); BASOPHIL % 0.2 % (0.0-0.4); Basophil (Absolute #) 0.02 (0-0.4); Eosinophil % 4.4 % (0.00-5.0); Eosinophil (Absolute #) 0.37 (0-0.5); Hematocrit 47.5 % (42-50); Hemoglobin 15.9 gm/dl (12.5-18.0); Lymphocyte (Absolute #) 2.59 (1.0-4.6); Lymphocytes % 30.5 % (24.0-44.0); Mean Cell Volume 98.3 fl (78-100); Mean Corpuscular Hemoglobin 32.9 pg (26-32); Mean Corpuscular Hgb Concent. 33.5 g/dl (32-36); Mean Platelet Volume 9.3 fl (7.5-11.0); Monocyte (Absolute #) 0.59 (0.0-1.3); Monocytes % 6.9 % (0.0-12.0); Platelet Count 173 K/mm3 (150-450); Red Blood Count 4.83 M/mm3 (4.1-5.6); Red Cell Distribution Width 12.6 % (11.5-14.0); White Blood Count 8.5 K/mm3 (4.0-10.5)
[2020-10-02 16:31] LABS: Appearance CLEAR (CLEAR); Bilirubin NEGATIVE (NEGATIVE); Blood SMALL Ery/ul (0-5); Glucose >=500 mg/dL (NEGATIVE); Ketones NEGATIVE (NEGATIVE); Leukocyte Esterase NEGATIVE (NEGATIVE); Mucus SLIGHT /HPF (NEGATIVE); Nitrite NEGATIVE (NEGATIVE); Protein,Urine Dip NEGATIVE (Negative); RBC 0-2 /HPF (0-2); Specific Gravity 1.037 (1.005-1.025); Urobilinogen 2 mg/dL (0-1)
[2020-10-02 16:43] LABS: ACETAMINOPHEN < 10 ug/ml (10-30); ALBUMIN 4.8 g/dL (3.5-5.0); ALKALINE PHOSPHATASE 59 U/L (38-126); ANION GAP 16.9 MEQ/L (5-15); BLOOD UREA NITROGEN 16 mg/dL (9-20); CHLORIDE 101 mmol/L (98-107); Calcium 10.1 mg/dL (8.4-10.2); Carbon Dioxide 27 mmol/L (22-30); Creatinine 1 0.75 mg/dL (0.66-1.25); EST GLOMERULAR FILTRATION RATE > 60.0 ML/MIN; ETHYL ALCOHOL < 10 mg/dL (0-10); Glucose 180 mg/dL (74-106); Potassium 4.6 mmol/L (3.5-5.1); SALICYLATE < 1.0 mg/dL (2-20); SGOT/AST 32 U/L (17-59); SGPT/ALT 31 U/L (0-50); SODIUM 140 mmol/L (137-145); Total Protein 8.4 g/dL (6.3-8.2)
[2020-10-02 16:50] LABS: Amphetamine,Urine NEGATIVE (NEGATIVE); Barbiturate,Urine NEGATIVE (NEGATIVE); Benzodiazepine,Urine NEGATIVE (NEGATIVE); Cocaine,Urine NEGATIVE (NEGATIVE); Methadone,Urine NEGATIVE (NEGATIVE); Opiate,Urine NEGATIVE (NEGATIVE); PCP,Urine NEGATIVE (NEGATIVE); THC,Urine NEGATIVE (NEGATIVE)
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
[2020-10-02 21:24] LABS: COVID AG -BINAX NOW RAPID TEST NEGATIVE (NEGATIVE)
[2020-10-03 00:53] VITALS: BP 108/64; PULSE 78; O2SAT 97
== END 2020-10-03 01:29 | disposition short-term general hospital (02) ==
LOC: ED 15:56
DX: T14.91XA Suicide attempt, initial encounter (principal)
CPT/HCPCS: 36415; 80053; 80307; 81001; 85025; 93005; 99000; 99285; G0480

== ENCOUNTER 2020-10-19 20:25 | Emergency (ER) | payer OTHER ==
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
[2020-10-19 21:05] LABS: Absolute Neutrophil Ct (ANC) 3.55 (1.4-6.9); BASOPHIL % 0.5 % (0.0-0.4); Basophil (Absolute #) 0.03 (0-0.4); Eosinophil % 4.5 % (0.00-5.0); Hematocrit 42.5 % (42-50); Hemoglobin 14.1 gm/dl (12.5-18.0); Lymphocyte (Absolute #) 2.18 (1.0-4.6); Mean Cell Volume 99.8 fl (78-100); Mean Corpuscular Hemoglobin 33.1 pg (26-32); Mean Corpuscular Hgb Concent. 33.2 g/dl (32-36); Mean Platelet Volume 9.2 fl (7.5-11.0); Monocyte (Absolute #) 0.55 (0.0-1.3); Monocytes % 8.3 % (0.0-12.0); Neutrophil % 53.7 % (36.0-66.0); Platelet Count 156 K/mm3 (150-450); Red Blood Count 4.26 M/mm3 (4.1-5.6); Red Cell Distribution Width 12.5 % (11.5-14.0); White Blood Count 6.6 K/mm3 (4.0-10.5)
[2020-10-19 21:17] LABS: ACETAMINOPHEN < 10 ug/ml (10-30); ALBUMIN 4.3 g/dL (3.5-5.0); ALKALINE PHOSPHATASE 61 U/L (38-126); ANION GAP 13.4 MEQ/L (5-15); BLOOD UREA NITROGEN 12 mg/dL (9-20); CHLORIDE 104 mmol/L (98-107); Calcium 9.6 mg/dL (8.4-10.2); Carbon Dioxide 23 mmol/L (22-30); Creatinine 1 0.73 mg/dL (0.66-1.25); EST GLOMERULAR FILTRATION RATE > 60.0 ML/MIN; ETHYL ALCOHOL < 10 mg/dL (0-10); Glucose 173 mg/dL (74-106); Potassium 3.5 mmol/L (3.5-5.1); SALICYLATE < 1.0 mg/dL (2-20); SGOT/AST 40 U/L (17-59); SGPT/ALT 35 U/L (0-50); SODIUM 137 mmol/L (137-145); Total Protein 7.7 g/dL (6.3-8.2)
[2020-10-19 22:22] LABS: Appearance CLEAR (CLEAR); Bilirubin NEGATIVE (NEGATIVE); Blood SMALL Ery/ul (0-5); Glucose >=500 mg/dL (NEGATIVE); Ketones NEGATIVE (NEGATIVE); Leukocyte Esterase NEGATIVE (NEGATIVE); Mucus SLIGHT /HPF (NEGATIVE); Nitrite NEGATIVE (NEGATIVE); Protein,Urine Dip NEGATIVE (Negative); RBC 0-2 /HPF (0-2); Specific Gravity 1.035 (1.005-1.025); Urobilinogen 2 mg/dL (0-1)
[2020-10-19 22:24] LABS: Bacteria NONE SEEN /HPF (NEGATIVE)
[2020-10-19 22:35] LABS: Amphetamine,Urine POSITIVE (NEGATIVE); Barbiturate,Urine NEGATIVE (NEGATIVE); Benzodiazepine,Urine NEGATIVE (NEGATIVE); Cocaine,Urine NEGATIVE (NEGATIVE); Methadone,Urine NEGATIVE (NEGATIVE); Opiate,Urine NEGATIVE (NEGATIVE); PCP,Urine NEGATIVE (NEGATIVE); THC,Urine NEGATIVE (NEGATIVE)
[2020-10-20 01:25] VITALS: BP 128/76; PULSE 83; O2SAT 98
== END 2020-10-20 01:15 | disposition short-term general hospital (02) ==
LOC: ED 20:25
DX: R45.851 Suicidal ideations (principal)
CPT/HCPCS: 36415; 80053; 80307; 81001; 85025; 99284; G0480

== ENCOUNTER 2021-02-20 06:01 | Emergency (ER) | payer OTHER ==
[2021-02-20 07:04] LABS: Absolute Neutrophil Ct (ANC) 5.73 (1.4-6.9); BASOPHIL % 0.4 % (0.0-0.4); Basophil (Absolute #) 0.04 (0-0.4); Eosinophil % 4.3 % (0.00-5.0); Eosinophil (Absolute #) 0.45 (0-0.5); Hematocrit 49.4 % (42-50); Hemoglobin 16.6 gm/dl (12.5-18.0); Lymphocyte (Absolute #) 3.13 (1.0-4.6); Lymphocytes % 29.7 % (24.0-44.0); Mean Cell Volume 97.2 fl (78-100); Mean Corpuscular Hemoglobin 32.7 pg (26-32); Mean Corpuscular Hgb Concent. 33.6 g/dl (32-36); Mean Platelet Volume 9.4 fl (7.5-11.0); Monocyte (Absolute #) 1.18 (0.0-1.3); Monocytes % 11.2 % (0.0-12.0); Neutrophil % 54.4 % (36.0-66.0); Platelet Count 223 K/mm3 (150-450); Red Blood Count 5.08 M/mm3 (4.1-5.6); Red Cell Distribution Width 13.1 % (11.5-14.0); White Blood Count 10.5 K/mm3 (4.0-10.5)
[2021-02-20 07:26] LABS: ACETAMINOPHEN < 10 ug/ml (10-30); ETHYL ALCOHOL < 10 mg/dL (0-10); SALICYLATE < 1.0 mg/dL (2-20)
[2021-02-20 07:41] LABS: ALKALINE PHOSPHATASE 74 U/L (38-126); ANION GAP 20.4 MEQ/L (5-15); BLOOD UREA NITROGEN 21 mg/dL (9-20); CHLORIDE 96 mmol/L (98-107); Calcium 11.2 mg/dL (8.4-10.2); Carbon Dioxide 25 mmol/L (22-30); Creatinine 1 0.84 mg/dL (0.66-1.25); EST GLOMERULAR FILTRATION RATE > 60.0 ML/MIN; Glucose 190 mg/dL (74-106); Potassium 4.3 mmol/L (3.5-5.1); SGOT/AST 67 U/L (17-59); SGPT/ALT 43 U/L (0-50); SODIUM 138 mmol/L (137-145); Total Protein 8.5 g/dL (6.3-8.2)
[2021-02-20 07:55] LABS: Appearance CLEAR (CLEAR); Bilirubin NEGATIVE (NEGATIVE); Blood SMALL Ery/ul (0-5); Glucose >=500 mg/dL (NEGATIVE); Ketones NEGATIVE (NEGATIVE); Leukocyte Esterase NEGATIVE (NEGATIVE); Mucus SLIGHT /HPF (NEGATIVE); Nitrite NEGATIVE (NEGATIVE); Protein,Urine Dip 30 (Negative); Specific Gravity 1.038 (1.005-1.025); Urobilinogen NEGATIVE mg/dL (0-1)
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
[2021-02-20 07:58] LABS: Bacteria NONE SEEN /HPF (NEGATIVE)
[2021-02-20 08:17] LABS: Barbiturate,Urine NEGATIVE (NEGATIVE); Benzodiazepine,Urine NEGATIVE (NEGATIVE); Cocaine,Urine NEGATIVE (NEGATIVE); Methadone,Urine NEGATIVE (NEGATIVE); Opiate,Urine NEGATIVE (NEGATIVE); PCP,Urine NEGATIVE (NEGATIVE); THC,Urine NEGATIVE (NEGATIVE)
[2021-02-20 09:04] LABS: Amphetamine,Urine POSITIVE (NEGATIVE)
[2021-02-20 19:17] LABS: COVID AG -BINAX NOW RAPID TEST NEGATIVE (NEGATIVE)
[2021-02-21 08:54] VITALS: BP 116/56; PULSE 80; O2SAT 98
== END 2021-02-21 09:15 | disposition short-term general hospital (02) ==
LOC: ED 06:01
DX: F32.9 Major depressive disorder, single episode, unspecified (principal); R45.851 Suicidal ideations
CPT/HCPCS: 36415; 80053; 80307; 81001; 85025; 90791; 93005; 99000; 99285; Q3014; G0480

== ENCOUNTER 2021-08-21 20:37 | Emergency (ER) | payer OTHER ==
[2021-08-21 21:30] LABS: Absolute Neutrophil Ct (ANC) 5.12 (1.4-6.9); Basophil (Absolute #) 0.02 (0-0.4); Eosinophil % 3.1 % (0.00-5.0); Eosinophil (Absolute #) 0.29 (0-0.5); Hematocrit 45.2 % (42-50); Hemoglobin 15.5 gm/dl (12.5-18.0); Lymphocytes % 35.7 % (24.0-44.0); Mean Cell Volume 97.2 fl (78-100); Mean Corpuscular Hemoglobin 33.3 pg (26-32); Mean Corpuscular Hgb Concent. 34.3 g/dl (32-36); Mean Platelet Volume 9.3 fl (7.5-11.0); Monocyte (Absolute #) 0.52 (0.0-1.3); Monocytes % 5.6 % (0.0-12.0); Neutrophil % 55.4 % (36.0-66.0); Platelet Count 208 K/mm3 (150-450); Red Blood Count 4.65 M/mm3 (4.1-5.6); Red Cell Distribution Width 13.8 % (11.5-14.0); White Blood Count 9.3 K/mm3 (4.0-10.5)
[2021-08-21 21:35] LABS: Appearance CLEAR (CLEAR); Bilirubin NEGATIVE (NEGATIVE); Blood NEGATIVE Ery/ul (0-5); Glucose >=500 mg/dL (NEGATIVE); Ketones NEGATIVE (NEGATIVE); Leukocyte Esterase NEGATIVE (NEGATIVE); Mucus SLIGHT /HPF (NEGATIVE); Nitrite NEGATIVE (NEGATIVE); Protein,Urine Dip NEGATIVE (Negative); Specific Gravity 1.005 (1.005-1.025); Urobilinogen NEGATIVE mg/dL (0-1)
[2021-08-21 21:41] LABS: RBC NONE SEEN /HPF (0-2)
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
[2021-08-21 21:48] LABS: Amphetamine,Urine NEGATIVE (NEGATIVE); Barbiturate,Urine NEGATIVE (NEGATIVE); Benzodiazepine,Urine NEGATIVE (NEGATIVE); Cocaine,Urine NEGATIVE (NEGATIVE); Methadone,Urine NEGATIVE (NEGATIVE); Opiate,Urine NEGATIVE (NEGATIVE); PCP,Urine NEGATIVE (NEGATIVE); THC,Urine NEGATIVE (NEGATIVE)
[2021-08-21 21:52] LABS: ACETAMINOPHEN < 10 ug/ml (10-30); ALBUMIN 4.5 g/dL (3.5-5.0); ALKALINE PHOSPHATASE 72 U/L (38-126); ANION GAP 20.9 MEQ/L (5-15); BLOOD UREA NITROGEN 7 mg/dL (9-20); CHLORIDE 103 mmol/L (98-107); Calcium 9.4 mg/dL (8.4-10.2); Carbon Dioxide 20 mmol/L (22-30); Creatinine 1 0.81 mg/dL (0.66-1.25); EST GLOMERULAR FILTRATION RATE > 60.0 ML/MIN; ETHYL ALCOHOL 116 mg/dL (0-10); Glucose 161 mg/dL (74-106); Potassium 3.5 mmol/L (3.5-5.1); SALICYLATE < 1.0 mg/dL (2-20); SGOT/AST 32 U/L (17-59); SGPT/ALT 30 U/L (0-50); SODIUM 140 mmol/L (137-145); Total Protein 7.9 g/dL (6.3-8.2)
[2021-08-21 21:57] LABS: COVID AG -BINAX NOW RAPID TEST NEGATIVE (NEGATIVE)
[2021-08-22 14:08] VITALS: BP 143/106; PULSE 97; O2SAT 93
== END 2021-08-22 16:30 | disposition short-term general hospital (02) ==
LOC: ED 20:37
DX: R45.851 Suicidal ideations (principal); E78.5 Hyperlipidemia, unspecified; Z63.0 Problems in relationship with spouse or partner; E11.9 Type 2 diabetes mellitus without complications; Z79.4 Long term (current) use of insulin; F03.91 Unspecified dementia, unspecified severity, with behavioral disturbance; Z91.51 Personal history of suicidal behavior; F32.A Depression, unspecified; Z72.0 Tobacco use; Z79.899 Other long term (current) drug therapy
CPT/HCPCS: 36415; 80053; 80307; 81001; 82947; 85025; 93005; 99000; 99285; G0480

== ENCOUNTER 2023-05-11 21:01 | Emergency (ER) | payer OTHER ==
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
[2023-05-11 21:33] LABS: Absolute Neutrophil Ct (ANC) 4.33 x10^3/uL (1.4-6.9); BASOPHIL % 0.8 % (0.0-0.4); Basophil (Absolute #) 0.06 x10^3/uL (0-0.4); Eosinophil % 2.8 % (0.00-5.0); Hematocrit 43.5 % (42-50); Hemoglobin 15.2 g/dL (12.5-18.0); IMMATURE GRAN # 0.02 x10^3u/L (0.00-0.03); IMMATURE GRAN % 0.3 % (0.00-0.4); Lymphocyte (Absolute #) 2.16 x10^3/uL (1.0-4.6); Mean Cell Volume 97.8 fL (78-100); Mean Corpuscular Hemoglobin 34.2 pg (26-32); Mean Corpuscular Hgb Concent. 34.9 g/dL (32-36); Mean Platelet Volume 9.3 fL (7.5-11.0); Monocyte (Absolute #) 0.44 x10^3/uL (0.0-1.3); Monocytes % 6.1 % (0.0-12.0); Platelet Count 192 x10^3/uL (150-450); Red Blood Count 4.45 x10^6/uL (4.1-5.6); Red Cell Distribution Width 11.8 % (11.5-14.0); White Blood Count 7.2 x10^3/uL (4.0-10.5)
[2023-05-11 21:43] VITALS: TEMP 97.4
[2023-05-11 21:47] LABS: ACETAMINOPHEN < 10 ug/ml (10-30); ALBUMIN 4.5 g/dL (3.5-5.0); ALKALINE PHOSPHATASE 70 U/L (38-126); ANION GAP 22.2 MEQ/L (5-15); BLOOD UREA NITROGEN 8 mg/dL (9-20); CHLORIDE 101 mmol/L (98-107); Calcium 9.7 mg/dL (8.4-10.2); Carbon Dioxide 19 mmol/L (22-30); Creatinine 1 0.84 mg/dL (0.66-1.25); EST GLOMERULAR FILTRATION RATE 100.5 ML/MIN; ETHYL ALCOHOL 83 mg/dL (0-10); Glucose 278 mg/dL (74-106); Potassium 4.1 mmol/L (3.5-5.1); SALICYLATE < 1.0 mg/dL (2-20); SGOT/AST 41 U/L (17-59); SGPT/ALT 44 U/L (0-50); SODIUM 138 mmol/L (137-145); Total Protein 7.5 g/dL (6.3-8.2)
[2023-05-11 22:51] LABS: Appearance Clear (Clear); Bacteria None Seen /HPF (None Seen); Bilirubin Negative (Negative); Blood Negative (Negative); Epithelial Cells None Seen /HPF (None Seen); Glucose, Urine >=1000 mg/dL (Negative); Hyaline Casts NONE SEEN /LPF (0-2); Ketones Trace (Negative); Leukocyte Esterase Negative (Negative); Nitrite Negative (Negative); Ph 5.5 (4.6-8.0); Protein,Urine Dip Negative (Negative); RBC 0-2 /HPF (0-5); Specific Gravity 1.015 (1.005-1.030); WBC 0-2 /HPF (0-5)
[2023-05-11 22:54] LABS: ADD URINE CULTURE? NO (NO)
[2023-05-11 23:03] LABS: Amphetamine,Urine NEGATIVE (NEGATIVE); Barbiturate,Urine NEGATIVE (NEGATIVE); Benzodiazepine,Urine NEGATIVE (NEGATIVE); Cocaine,Urine NEGATIVE (NEGATIVE); Methadone,Urine NEGATIVE (NEGATIVE); Opiate,Urine NEGATIVE (NEGATIVE); PCP,Urine NEGATIVE (NEGATIVE); THC,Urine NEGATIVE (NEGATIVE)
[2023-05-11] MEDS ORDERED: Sodium Chloride 0.9% 1000 ML 1,000 ML IV STA (23:10)
[2023-05-11] MEDS ORDERED: Sodium Chloride 0.9% 1000 ML 1,000 ML ONE (23:29)
[2023-05-12 00:45] LABS: ALBUMIN 4.2 g/dL (3.5-5.0); ANION GAP 16.4 MEQ/L (5-15); BILIRUBIN,TOTAL 0.2 mg/dL (0.2-1.3); Calcium 9.1 mg/dL (8.4-10.2); Creatinine 1 0.64 mg/dL (0.66-1.25); EST GLOMERULAR FILTRATION RATE 109.1 ML/MIN; Potassium 3.9 mmol/L (3.5-5.1); Total Protein 7.2 g/dL (6.3-8.2)
[2023-05-12 05:28] VITALS: RESP 18
[2023-05-12 06:01] VITALS: BP 149/96; PULSE 91; O2SAT 96
== END 2023-05-12 06:23 ==
LOC: ED 21:01
DX: T50.902A Poisoning by unspecified drugs, medicaments and biological substances, intentional self-harm, initial encounter (principal); E87.20 Acidosis, unspecified; R45.851 Suicidal ideations; E78.5 Hyperlipidemia, unspecified; E11.9 Type 2 diabetes mellitus without complications; Z79.02 Long term (current) use of antithrombotics/antiplatelets; Z79.84 Long term (current) use of oral hypoglycemic drugs; Z79.899 Other long term (current) drug therapy; Z72.0 Tobacco use
CPT/HCPCS: 36000; 36415; 80053; 80143; 80179; 80307; 81001; 82077; 82947; 85025; 93005; 96360; 99285

== ENCOUNTER 2024-08-30 09:49 | Observation (INO) | payer OTHER ==
--- NOTE | 2024-08-30 10:35 | XRAY ---
CLINICAL HISTORY: weakness COMPARISON: None. TECHNIQUE: An axial non-contrast CT scan of the brain was performed from the skull base to the high parietal region more in the right frontal region. One of the following dose-reduction techniques was utilized for this exam. Automated exposure control, adjustment of the mA and/or kV according to patient size, and use of iterative reconstruction. "CT scan performed according to ALARA principle. Automated exposure control used during the exam." FINDINGS: An area of chronic infarction with encephalomalacia involving the left occipital lobe in the parasagittal location. Patchy hypodensities in the bilateral cerebral deep and subcortical white matter region are non-specific but may represent chronic microvascular white matter ischemic changes, However, the possibility of underlying age-indeterminate ischemic insult cannot be entirely excluded if clinically warranted further evaluation with MRI with DWI images can be obtained. Chronic Lacunar infarcts in the bilateral basal ganglia No midline shifts or deformity. No intracerebral or extra axial hematoma. Normal CT appearance of the posterior fossa structures, namely the cerebellar hemispheres, brainstem, and cerebellar peduncles. The bony structures in the skull base are unremarkable. There are no definite calvarium fractures. The septum nasi shows mild deviation to the right with a bony spur. The scanned paranasal sinuses are clear. IMPRESSION: 1. An area of chronic infarction with encephalomalacia involving the left occipital lobe in the parasagittal location, the Possibility of acute on chronic infarction cannot be ruled out, and an MRI brain with DWI images is advised. 2. Patchy hypodensities in the bilateral cerebral deep and subcortical white matter region are non-specific but may represent chronic microvascular white matter ischemic changes, However, the possibility of underlying age-indeterminate ischemic insult cannot be entirely excluded if clinically warranted further evaluation with MRI with DWI images can be obtained. 3. Chronic Lacunar infarcts in the bilateral basal ganglia. Early changes of stroke may not be detected on a CT scan. If there is a strong clinical suspicion of stroke, then an MRI with diffusion-weighted imaging is suggested. Electronically Signed by: Parvin Mason MD. (08/30/2024 10:29:56 EST)
[2024-08-30] MEDS ORDERED: Sodium Chloride 0.9% 1000 ML 1,000 ML ONE (10:44)
[2024-08-30] MEDS: Sodium Chloride 0.9% 1000 ML 1,000 ML IV STA (10:45)
[2024-08-30] MEDS: Keppra 500 MG/5 ML*** 1,000 MG in D5w 100ML Mini Bag 100 ML 100 ML IV ONE (11:03)
[2024-08-30 11:37] LABS: Absolute Neutrophil Ct (ANC) 13.34 x10^3/uL (1.78-5.38); BASOPHIL % 0.3 % (0.2-1.2); Basophil (Absolute #) 0.05 x10^3/uL (0.01-0.08); Eosinophil % 0.7 % (0.8-7.0); Eosinophil (Absolute #) 0.11 x10^3/uL (0.04-0.54); Hematocrit 47.2 % (40.1-51.0); Hemoglobin 16.6 g/dL (13.7-17.5); IMMATURE GRAN # 0.12 x10^3u/L (0.001-0.031); IMMATURE GRAN % 0.8 % (0.001-0.429); Lymphocyte (Absolute #) 1.21 x10^3/uL (1.32-3.57); Lymphocytes % 7.7 % (21.8-53.1); Mean Cell Volume 93.8 fL (79.0-92.2); Mean Corpuscular Hgb Concent. 35.2 g/dL (32.3-36.5); Mean Platelet Volume 9.8 fL (9.4-12.4); Monocytes % 5.1 % (5.3-12.2); Neutrophil % 85.4 % (34.0-67.9); Platelet Count 179 x10^3/uL (163-337); Red Blood Count 5.03 x10^6/uL (4.63-6.08); Red Cell Distribution Width 11.9 % (11.6-14.4); White Blood Count 15.6 x10^3/uL (4.23-9.07)
[2024-08-30 11:50] LABS: INR 1.05 (0.8-3.0); PROTIME 11.4 SECONDS (9.4-12.5)
[2024-08-30 11:52] LABS: ALBUMIN 4.7 g/dL (3.5-5.0); BILIRUBIN,TOTAL 0.7 mg/dL (0.2-1.3); Calcium 9.4 mg/dL (8.4-10.2); Creatinine 1 0.62 mg/dL (0.66-1.25); EST GLOMERULAR FILTRATION RATE 108.7 ML/MIN; Total Protein 7.6 g/dL (6.3-8.2)
[2024-08-30 11:57] LABS: Potassium 4.2 mmol/L (3.5-5.1)
[2024-08-30 11:59] LABS: ANION GAP 21.2 MEQ/L (5-15)
--- NOTE | 2024-08-30 12:04 | XRAY ---
CLINICAL HISTORY: right sided ribs COMPARISON: No previous studies are available for comparison. TECHNIQUE: X-ray images of the unilateral right ribs were obtained in [PA/AP, lateral, and oblique projections]. FINDINGS: Ribs: Acute nondisplaced fractures along the right 7th and 8th anterior ribs are seen. A nondisplaced fracture along the posterior end of the right 12th rib is seen. No abnormal rib lucencies or sclerotic lesions. Normal rib contour and alignment. Chest Wall: The soft tissues of the chest wall appear unremarkable. No evidence of subcutaneous emphysema or soft tissue masses. Lungs and Pleura: The lung piedra are clear with no evidence of pneumothorax or pleural effusion. No pulmonary infiltrates or masses identified. Additional Findings: None. IMPRESSION: 1. Acute nondisplaced fractures along the right 7th and 8th anterior ribs are seen. 2. A nondisplaced fracture along the posterior end of the right 12th rib is seen. 3. No sizeable pneumothorax is seen. Disclaimer: A subtle bone abnormality or fracture may not be readily apparent on x-rays, thus clinical correlation and further imaging including follow-up CT, MRI, or follow-up x-rays are advised as needed. Electronically Signed by: Parvin Mason MD. (08/30/2024 12:00:13 EST)
[2024-08-30 12:22] LABS: MAGNESIUM 2.3 mg/dL (1.6-2.3); TSH, 3RD Generation 1.17 mIU/L (0.470-4.680)
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
[2024-08-30] MEDS: Keppra 500 MG/5 ML*** 200 MG in D5w 100ML Mini Bag 100 ML 100 ML IV ONE (12:55)
--- NOTE | 2024-08-30 15:09 | XRAY ---
CLINICAL HISTORY: fall, lower ribs fx COMPARISON: "No prior studies available for comparison." TECHNIQUE: Non-contrast CT of the abdomen and pelvis was performed, with the following protocol: axial images, and reconstructed coronal and sagittal images. One of the following dose reduction techniques was utilized for this exam: Automated exposure control, adjustment of the mA and/or kV according to patient size, and use of iterative reconstruction. FINDINGS: Abdomen: Liver: Mildly enlarged in size, normal shape, and density. No focal lesions, cysts, or masses were identified. Gallbladder and Biliary System: The gallbladder is surgically removed. Normal CBD caliber, no detectable stones or masses. Pancreas: The pancreatic head, body, and tail are visualized and appear normal in size and density. No pancreatic masses or calcifications were noted. Spleen: Normal in size, shape, and density. No splenic lesions or masses were identified. Appendix: The appendix is normal. Kidneys and Adrenal Glands: Both kidneys are normal in size, shape, and position. Cortical thickness is within normal limits. 5 mm lower calyceal right renal non-obstructive stone seen. No other calculi or hydronephrosis. Adrenal glands are unremarkable. Abdominal Aorta and Vessels: The abdominal aorta and major branches are patent without evidence of an aneurysm. Aortic calcified atherosclerotic changes. Pelvis: Urinary Bladder: Normal in contour and slightly thickened wall denoting cystitis. No intraluminal lesions. Prostate: Normal in size and contour. No masses or abnormal thickening. Seminal Vesicles: Normal appearance without abnormal enlargement or mass. Peritoneal and Retroperitoneal Structures: No free fluid or abnormal fluid collections were identified within the abdomen or pelvis. No lymphadenopathy was noted. Bowel: The visualized bowel loops are normal in caliber and appearance. No evidence of bowel obstruction or wall thickening. Bones and Soft Tissues: Acute non-displaced fissure fracture seen at 7th right anterior rib. Suspected acute nondisplaced fracture at the lower end of the 12th right posterior rib. Old united fracture seen at 5th left anterior rib The pelvic bones and soft tissues are unremarkable. No fractures or abnormal masses were identified. Cuts taken through lower chest show no areas of consolidation or pleural effusion. IMPRESSION: 1. No evidence of acute intra-abdominal pathology. Clinical correlation is recommended for further evaluation. 2. 5 mm lower calyceal right renal non-obstructive stone. 3. Mild thickening is noted in the wall of the urinarry bladder, clinical and lab correlation is advised to rule out cystitis 4. Acute non-displaced fissure fracture was seen at the 7th right anterior rib, suspected acute fracture at the lower end of 12th right posterior rib and an old united fracture was seen at the 5th left anterior rib. Electronically Signed by: Parivn Mason MD. (08/30/2024 15:03:50 EST)
--- NOTE | 2024-08-30 15:15 | XRAY ---
CLINICAL HISTORY: fall, lower ribs fx COMPARISON: None. TECHNIQUE: Contiguous axial CT images of the chest were acquired without the administration of intravenous contrast. Coronal and sagittal reconstructions were obtained. One of the following dose reduction techniques was utilized for this exam: Automated exposure control, adjustment of the mA and/or kV according to patient size, use of iterative reconstruction. FINDINGS: Lungs: The lung parenchyma is clear with no evidence of consolidation, collapse, or focal lesions. A few tiny 2-3mm nodules are seen in bilateral lungs, largest about 4mm in the lateral segment of right middle lobe. No evidence of interstitial lung disease or emphysema. No pleural effusion or pleural thickening. Mediastinum: The mediastinum is normal in size and contour. Calcified small reactive mediastinal lymph nodes. The heart size is within normal limits. Hilar Structures: The hilar structures appear normal without enlargement or abnormality. Trachea and Main Bronchi: The trachea and main bronchi are patent without evidence of obstruction or abnormality. Chest Wall: The chest wall is unremarkable with no evidence of soft tissue or bony abnormalities. Upper Abdomen: Visualized portions of the liver, spleen, adrenal glands, and kidneys are unremarkable. Cholecystectomy clips. Bones: Visualized osseous structures are normal. Fissure fracture of 7th right lateral aspect and old healed fracture of left fifth rib. Thoracic spondylosis. IMPRESSION: 1. Fissure fracture of right 7th rib lateral aspect and old healed fracture of left fifth rib. 2. A few tiny 2-3mm nodules are seen in bilateral lungs with largest about 4mm in the lateral segment of right middle lobe. 3. No pneumothorax. Electronically Signed by: Parvin Mason MD. (08/30/2024 15:10:56 EST)
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
[2024-08-30] MEDS ORDERED: NORCO 5/325 MG PO PRN (16:25)
[2024-08-30 16:42] LABS: ALBUMIN 4.8 g/dL (3.5-5.0); ANION GAP 21.3 MEQ/L (5-15); BILIRUBIN,TOTAL 0.7 mg/dL (0.2-1.3); Calcium 9.1 mg/dL (8.4-10.2); Creatinine 1 0.66 mg/dL (0.66-1.25); EST GLOMERULAR FILTRATION RATE 106.7 ML/MIN; Potassium 4.1 mmol/L (3.5-5.1); Total Protein 7.9 g/dL (6.3-8.2)
[2024-08-30] MEDS: TYLENOL 325 MG PO PRN (16:45)
[2024-08-30] MEDS: Nicoderm CQ 21 MG TOP SCH (16:46)
[2024-08-30] MEDS: Sodium Bicarbonate 50 MEQ/50 ML VIAL*** 150 MEQ in Dextrose 5%/Water IV Soln. 1000 ML 1... IV SCH (17:31)
[2024-08-30] MEDS: Namenda 5 MG PO SCH (21:41)
[2024-08-30] MEDS: KEPPRA PO SCH (21:41)
[2024-08-30] MEDS: Cyclobenzaprine 10 MG PO SCH (21:41)
[2024-08-30] MEDS: ANTIVERT 25 MG PO SCH (21:41)
[2024-08-30] MEDS: HUMALOG SQ PRN (21:42)
[2024-08-30] MEDS: Glucotrol Xl 2.5 MG PO SCH (21:42)
[2024-08-30] MEDS ORDERED: Keppra 250 MG PO SCH (22:00)
[2024-08-30] MEDS ORDERED: Glucotrol Xl 2.5 MG PO SCH (22:00)
[2024-08-30] MEDS: NAPROSYN 375 MG PO SCH (22:07)
[2024-08-31 04:28] LABS: Amphetamine,Urine NEGATIVE (NEGATIVE); Barbiturate,Urine NEGATIVE (NEGATIVE); Benzodiazepine,Urine NEGATIVE (NEGATIVE); Cocaine,Urine NEGATIVE (NEGATIVE); Methadone,Urine NEGATIVE (NEGATIVE); Opiate,Urine NEGATIVE (NEGATIVE); PCP,Urine NEGATIVE (NEGATIVE); THC,Urine NEGATIVE (NEGATIVE)
[2024-08-31 05:08] LABS: Appearance Clear (Clear); Bacteria None Seen /HPF (None Seen); Bilirubin Negative (Negative); Blood Negative (Negative); Epithelial Cells None Seen /HPF (None Seen); Glucose, Urine 500 mg/dL (Negative); Hyaline Casts NONE SEEN /LPF (0-2); Ketones Negative (Negative); Leukocyte Esterase Negative (Negative); Nitrite Negative (Negative); Ph 6.5 (4.6-8.0); Protein,Urine Dip Negative (Negative); RBC 0-2 /HPF (0-5); Specific Gravity >=1.030 (1.005-1.030); WBC 0-2 /HPF (0-5)
[2024-08-31 06:30] LABS: Hematocrit 43.1 % (40.1-51.0); Hemoglobin 15.1 g/dL (13.7-17.5); Mean Cell Volume 94.5 fL (79.0-92.2); Mean Corpuscular Hemoglobin 33.1 pg (25.7-32.2); Mean Platelet Volume 9.7 fL (9.4-12.4); Platelet Count 156 x10^3/uL (163-337); Red Blood Count 4.56 x10^6/uL (4.63-6.08); Red Cell Distribution Width 12.1 % (11.6-14.4); White Blood Count 7.5 x10^3/uL (4.23-9.07)
[2024-08-31 08:07] LABS: ANION GAP 11.7 MEQ/L (5-15); BILIRUBIN,TOTAL 0.6 mg/dL (0.2-1.3); Calcium 8.8 mg/dL (8.4-10.2); Creatinine 1 0.68 mg/dL (0.66-1.25); EST GLOMERULAR FILTRATION RATE 105.8 ML/MIN; Potassium 3.5 mmol/L (3.5-5.1); Total Protein 6.7 g/dL (6.3-8.2)
[2024-08-31] MEDS: Cymbalta 30 MG Capsule PO SCH ×2 (09:31)
[2024-08-31] MEDS: SYNTHROID 50 MCG PO SCH (09:31)
[2024-08-31] MEDS: PLAVIX Tablet PO SCH (09:31)
[2024-08-31] MEDS: Protonix 20MG Tablet PO SCH (09:31)
[2024-08-31] MEDS: Effexor XR 75 MG PO SCH (09:31)
[2024-08-31] MEDS: Aricept 10 MG PO SCH (09:31)
[2024-08-31] MEDS: JARDIANCE PO SCH (09:33)
[2024-08-31] MEDS: LIPITOR 40MG PO SCH (09:33)
[2024-08-31] MEDS ORDERED: NON-FORMULARY ITEM (Venlafaxine Hcl [Venlafaxine Hcl Er] 75 MG Tab.Er.24) PO SCH (10:00)
[2024-08-31] MEDS ORDERED: NON-FORMULARY ITEM (Duloxetine Hcl [Duloxetine Hcl] 60 MG Capsule.Dr) PO SCH (10:00)
--- NOTE | 2024-08-31 14:30 | XRAY ---
CLINICAL HISTORY: new onset seizure COMPARISON: CT dated 08/30/2024. TECHNIQUE: Different pulse sequences were performed in different planes without contrast for the brain. Images were sent through PACs for interpretation. FINDINGS: Brain Parenchyma: No hyperacute or acute infarctions could be depicted. Multiple discrete as well as confluent T2 and FLAIR hyperintense foci are seen in bilateral subcortical white matter, centrum semi-ovale, fields radiata, and periventricular locations, with no diffusion restriction (FAZEKAS 3). Cystic encephalomalacic changes are seen in the left mesial occipital lobe with reduced cerebral volume. No intracerebral or extra-axial hematomas or masses. Ventricular System: Accentuated cortical sulci, Sylvian fissures, and extra-axial CSF spaces are associated with symmetrical dilatation of the supra-tentorial ventricular system. No evidence of subarachnoid hemorrhage or extra-axial fluid collections. Cerebellum and Brainstem: A tiny lacunar infarct is seen in the right cerebellar hemisphere. The brainstem appears normal. Pituitary Gland: Normal size and morphology. No evidence of pituitary adenoma or other sellar/suprasellar mass. Orbits: Normal appearance of the globes, optic nerves, and extraocular muscles. No evidence of orbital masses or abnormal signals. Sinuses: Clear paranasal sinuses. No evidence of sinusitis or mucosal thickening. Mastoid Air Cells: Clear mastoid air cells. No evidence of mastoiditis. Skull and Meninges: Normal skull morphology. IMPRESSION: 1. No hyperacute or acute infarctions could be depicted. 2. Cystic encephalomalacic changes are seen in the left mesial occipital lobe with reduced cerebral volume. 3. Age-related brain involutional changes. 4. Advanced chronic microvascular ischemic angiopathy with possible subcortical arteriosclerotic encephalopathy, clinical correlation is needed, Fazekas III. 5. Findings similar to CT dated 08/30/2024. Electronically Signed by: Parvin Mason MD. (08/31/2024 14:27:04 EST)
--- NOTE | 2024-08-31 14:47 | PCM.NOTE ---
Date and Time: 08/31/24 1438 Subjective Assessment: 08/30/24 is a 59 year old male with history of dementia, TIAs/stroke without significant residual weakness on Eliquis, COPD/tobacco use. He was brought to the ER by EMS after patient has a seizure-like activity prior to arrival. Patient apparently was trying to light his cigarette and noticed he leaned forward with stiffening of his upper extremities and fell sideways onto the chair hitting his ribs against it. Did not hit his head. Patient was snoring immediately when was at the scene, agitated and confused and slowly getting along, was not back to his baseline until after arrival in the ER. Patient has baseline dementia with not full orientation but moving all 4 extremities and following most of the commands. Not in any distress. No history of seizures before. Patient is made stroke activated and prompt CT head without contrast was obtained which showed old changes and no obvious bleed, infarct. Prompt [facility] neurology consult obtained in ER. Dr. Donovan neurology has reviewed CT films and did not think patient has anything acute and agree that patient has new onset seizures and recommended starting him on Keppra loading dose followed by oral 500 mg twice daily and obtaining inpatient MRI brain without contrast to rule out any ischemic event. In the ER he ws given IV fluids, workup showed white count of 15, lactate of 1.7, chemistries with some elevation in the anion gap and normal renal functions. Has some elevated transaminases in 60s. EKG showed sinus rhythm with no acute ST elevations. X-rays rib series showed right seventh and eighth ribs nondisplaced fracture and also fracture 12th rib with no pneumothorax. CT chest and abdomen pelvis completed by ER physician because of 12th rib fracture to make sure patient does not have any hepatic injury and they are both negative for any acute finding other than rib fractures. Pt has no c/o pain at this time. Awaiting formal neurology evaluation report. Family does not want [facility] OP f/u. He is at his baseline dementia per family. Will have PT eval for needs in AM. He denies any further concerns at this time. 08/31/24 Pt resting in bed. He did not have any seizures overnight. He states he feels fine and at baseline mental function. Will re-consult neurology for further eval of EEG and MRI results today. He denies CP, SOB, abd. pain, N/V/D. PT to eval for home needs. Labs overall improved. He denies any pain. - Review of Systems Constitutional: No Fever, No Chills Eyes: No Symptoms Ears, Nose, & Throat: No Symptoms Respiratory: No Cough, No Short Of Breath Cardiac: No Chest Pain, No Edema, No Syncope Abdominal/Gastrointestinal: No Abdominal Pain, No Nausea, No Vomiting, No Diarrhea Genitourinary Symptoms: No Dysuria Musculoskeletal: No Back Pain, No Neck Pain Skin: No Rash Neurological: No Dizziness, No Focal Weakness, No Sensory Changes Psychological: No Symptoms Endocrine: No Symptoms Hematologic/Lymphatic: No Symptoms Immunological/Allergic: No Symptoms Objective Exam General Appearance: no apparent distress, alert Neurologic Exam: alert, 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, cooperative, normal mood/affect, nml cerebellar function, sensation nml, No motor deficits Skin Exam: normal color, warm, dry Eye Exam: PERRL, EOMI, eyes nml inspection Ears, Nose, Throat Exam: normal ENT inspection, pharynx normal, moist mucous membranes Neck Exam: normal inspection, non-tender, supple, full range of motion Respiratory Exam: normal breath sounds, lungs clear, No respiratory distress Cardiovascular Exam: regular rate/rhythm, normal heart sounds Gastrointestinal/Abdomen Exam: soft, No tenderness, No mass Extremity Exam: normal inspection, normal range of motion Back Exam: normal inspection, normal range of motion, No CVA tenderness, No vertebral tenderness Male Genitalia Exam: deferred Rectal Exam: deferred Objective Data Vital Signs: Vital Signs - 24 hr Temp Pulse Resp BP BP Pulse Ox 08/31/24 12:00 97.8 F 99 H 17 126/75 92 L 08/31/24 08:00 97.5 F 82 18 96/52 93 L 08/31/24 07:13 93 L 08/31/24 04:00 97.0 F 84 18 111/70 93 L 08/31/24 00:00 97.1 F 82 18 87/50 90 L 08/30/24 20:00 93 L 08/30/24 20:00 98.6 F 83 19 110/55 90 L 08/30/24 18:47 92 L 08/30/24 15:31 84 18 95 Pain Assessment - Last Documented Pain Intensity 0 Pain Scale Used 0-10 Pain Scale Intake and Output: Intake & Output 02/2608/30/24 08/31/24 09/01/24 11:59 11:59 11:59 11:59 Intake Total 2601 Balance 2601 Weight 82.9 kg 80.6 kg Lab Results: Lab Results-Last 24 Hours 08/30/24 08/30/24 08/30/24 Range/Units 15:00 15:00 16:58 WBC (4.23-9.07) x10^3/uL RBC (4.63-6.08) x10^6/uL Hgb (13.7-17.5) g/dL Hct (40.1-51.0) % MCV (79.0-92.2) fL MCH (25.7-32.2) pg MCHC (32.3-36.5) g/dL RDW (11.6-14.4) % Plt Count (163-337) x10^3/uL MPV (9.4-12.4) fL Sodium 139 (135-145) mmol/L Potassium 4.1 (3.5-5.1) mmol/L Chloride 108 H (98-107) mmol/L Carbon Dioxide 13 L* (22-30) mmol/L Anion Gap 21.3 H (5-15) MEQ/L BUN 11 (9-20) mg/dL Creatinine 0.66 (0.66-1.25) mg/dL Estimated GFR 106.7 ML/MIN Glucose 171 H (74-106) mg/dL POC Glucometer 138 H (74 to 106) mg/dL Hemoglobin A1c (4.5-6.0) % Calcium 9.1 (8.4-10.2) mg/dL Total Bilirubin 0.70 (0.2-1.3) mg/dL AST 116 H (17-59) U/L ALT 76 H (0-50) U/L Alkaline Phosphatase 79 (38-126) U/L Troponin I < 0.012 (0.000-0.033) ng/mL Serum Total Protein 7.9 (6.3-8.2) g/dL Albumin 4.8 (3.5-5.0) g/dL Urine Color (Yellow) Urine Appearance (Clear) Urine pH (4.6-8.0) Ur Specific [place] (1.005-1.030) Urine Protein (Negative) Urine Glucose (UA) (Negative) mg/dL Urine Ketones (Negative) Urine Blood (Negative) Urine Nitrite (Negative) Urine Bilirubin (Negative) Urine Urobilinogen (0.2) mg/dL Ur Leukocyte Esterase (Negative) U Hyaline Cast (Auto) (0-2) /LPF Urine Microscopic RBC (0-5) /HPF Urine Microscopic WBC (0-5) /HPF Ur Epithelial Cells (None Seen) /HPF Urine Bacteria (None Seen) /HPF Urine Culture Reflexed (NO) Urine Opiates Level (NEGATIVE) Ur Methadone (NEGATIVE) Urine Barbiturates (NEGATIVE) Ur Phencyclidine (PCP) (NEGATIVE) Urine Amphetamine (NEGATIVE) U Benzodiazepine Level (NEGATIVE) Urine Cocaine (NEGATIVE) Urine Marijuana (THC) (NEGATIVE) 08/30/24 08/30/24 08/31/24 Range/Units 18:57 21:21 04:06 WBC (4.23-9.07) x10^3/uL RBC (4.63-6.08) x10^6/uL Hgb (13.7-17.5) g/dL Hct (40.1-51.0) % MCV (79.0-92.2) fL MCH (25.7-32.2) pg MCHC (32.3-36.5) g/dL RDW (11.6-14.4) % Plt Count (163-337) x10^3/uL MPV (9.4-12.4) fL Sodium (135-145) mmol/L Potassium (3.5-5.1) mmol/L Chloride (98-107) mmol/L Carbon Dioxide (22-30) mmol/L Anion Gap (5-15) MEQ/L BUN (9-20) mg/dL Creatinine (0.66-1.25) mg/dL Estimated GFR ML/MIN Glucose (74-106) mg/dL POC Glucometer 330 H (74 to 106) mg/dL Hemoglobin A1c (4.5-6.0) % Calcium (8.4-10.2) mg/dL Total Bilirubin (0.2-1.3) mg/dL AST (17-59) U/L ALT (0-50) U/L Alkaline Phosphatase (38-126) U/L Troponin I < 0.012 (0.000-0.033) ng/mL Serum Total Protein (6.3-8.2) g/dL Albumin (3.5-5.0) g/dL Urine Color Yellow (Yellow) Urine Appearance Clear (Clear) Urine pH 6.5 (4.6-8.0) Ur Specific [place] >=1.030 A (1.005-1.030) Urine Protein Negative (Negative) Urine Glucose (UA) 500 A (Negative) mg/dL Urine Ketones Negative (Negative) Urine Blood Negative (Negative) Urine Nitrite Negative (Negative) Urine Bilirubin Negative (Negative) Urine Urobilinogen 1.0 A (0.2) mg/dL Ur Leukocyte Esterase Negative (Negative) U Hyaline Cast (Auto) NONE SEEN (0-2) /LPF Urine Microscopic RBC 0-2 (0-5) /HPF Urine Microscopic WBC 0-2 (0-5) /HPF Ur Epithelial Cells None Seen (None Seen) /HPF Urine Bacteria None Seen (None Seen) /HPF Urine Culture Reflexed NO (NO) Urine Opiates Level (NEGATIVE) Ur Methadone (NEGATIVE) Urine Barbiturates (NEGATIVE) Ur Phencyclidine (PCP) (NEGATIVE) Urine Amphetamine (NEGATIVE) U Benzodiazepine Level (NEGATIVE) Urine Cocaine (NEGATIVE) Urine Marijuana (THC) (NEGATIVE) 08/31/24 08/31/24 08/31/24 Range/Units 04:06 06:28 06:28 WBC (4.23-9.07) x10^3/uL RBC (4.63-6.08) x10^6/uL Hgb (13.7-17.5) g/dL Hct (40.1-51.0) % MCV (79.0-92.2) fL MCH (25.7-32.2) pg MCHC (32.3-36.5) g/dL RDW (11.6-14.4) % Plt Count (163-337) x10^3/uL MPV (9.4-12.4) fL Sodium 139 (135-145) mmol/L Potassium 3.5 (3.5-5.1) mmol/L Chloride 102 (98-107) mmol/L Carbon Dioxide 29 (22-30) mmol/L Anion Gap 11.7 (5-15) MEQ/L BUN 9 (9-20) mg/dL Creatinine 0.68 (0.66-1.25) mg/dL Estimated GFR 105.8 ML/MIN Glucose 197 H (74-106) mg/dL POC Glucometer (74 to 106) mg/dL Hemoglobin A1c 13.70 H (4.5-6.0) % Calcium 8.8 (8.4-10.2) mg/dL Total Bilirubin 0.60 (0.2-1.3) mg/dL AST 69 H (17-59) U/L ALT 64 H (0-50) U/L Alkaline Phosphatase 79 (38-126) U/L Troponin I (0.000-0.033) ng/mL Serum Total Protein 6.7 (6.3-8.2) g/dL Albumin 4.0 (3.5-5.0) g/dL Urine Color (Yellow) Urine Appearance (Clear) Urine pH (4.6-8.0) Ur Specific [place] (1.005-1.030) Urine Protein (Negative) Urine Glucose (UA) (Negative) mg/dL Urine Ketones (Negative) Urine Blood (Negative) Urine Nitrite (Negative) Urine Bilirubin (Negative) Urine Urobilinogen (0.2) mg/dL Ur Leukocyte Esterase (Negative) U Hyaline Cast (Auto) (0-2) /LPF Urine Microscopic RBC (0-5) /HPF Urine Microscopic WBC (0-5) /HPF Ur Epithelial Cells (None Seen) /HPF Urine Bacteria (None Seen) /HPF Urine Culture Reflexed (NO) Urine Opiates Level NEGATIVE (NEGATIVE) Ur Methadone NEGATIVE (NEGATIVE) Urine Barbiturates NEGATIVE (NEGATIVE) Ur Phencyclidine (PCP) NEGATIVE (NEGATIVE) Urine Amphetamine NEGATIVE (NEGATIVE) U Benzodiazepine Level NEGATIVE (NEGATIVE) Urine Cocaine NEGATIVE (NEGATIVE) Urine Marijuana (THC) NEGATIVE (NEGATIVE) 08/31/24 08/31/24 08/31/24 Range/Units 06:28 07:52 10:00 WBC 7.5 (4.23-9.07) x10^3/uL RBC 4.56 L (4.63-6.08) x10^6/uL Hgb 15.1 (13.7-17.5) g/dL Hct 43.1 (40.1-51.0) % MCV 94.5 H (79.0-92.2) fL MCH 33.1 H (25.7-32.2) pg MCHC 35.0 (32.3-36.5) g/dL RDW 12.1 (11.6-14.4) % Plt Count 156 L (163-337) x10^3/uL MPV 9.7 (9.4-12.4) fL Sodium (135-145) mmol/L Potassium (3.5-5.1) mmol/L Chloride (98-107) mmol/L Carbon Dioxide (22-30) mmol/L Anion Gap (5-15) MEQ/L BUN (9-20) mg/dL Creatinine (0.66-1.25) mg/dL Estimated GFR ML/MIN Glucose (74-106) mg/dL POC Glucometer 182 H 262 H (74 to 106) mg/dL Hemoglobin A1c (4.5-6.0) % Calcium (8.4-10.2) mg/dL Total Bilirubin (0.2-1.3) mg/dL AST (17-59) U/L ALT (0-50) U/L Alkaline Phosphatase (38-126) U/L Troponin I (0.000-0.033) ng/mL Serum Total Protein (6.3-8.2) g/dL Albumin (3.5-5.0) g/dL Urine Color (Yellow) Urine Appearance (Clear) Urine pH (4.6-8.0) Ur Specific [place] (1.005-1.030) Urine Protein (Negative) Urine Glucose (UA) (Negative) mg/dL Urine Ketones (Negative) Urine Blood (Negative) Urine Nitrite (Negative) Urine Bilirubin (Negative) Urine Urobilinogen (0.2) mg/dL Ur Leukocyte Esterase (Negative) U Hyaline Cast (Auto) (0-2) /LPF Urine Microscopic RBC (0-5) /HPF Urine Microscopic WBC (0-5) /HPF Ur Epithelial Cells (None Seen) /HPF Urine Bacteria (None Seen) /HPF Urine Culture Reflexed (NO) Urine Opiates Level (NEGATIVE) Ur Methadone (NEGATIVE) Urine Barbiturates (NEGATIVE) Ur Phencyclidine (PCP) (NEGATIVE) Urine Amphetamine (NEGATIVE) U Benzodiazepine Level (NEGATIVE) Urine Cocaine (NEGATIVE) Urine Marijuana (THC) (NEGATIVE) 08/31/24 Range/Units 11:22 WBC (4.23-9.07) x10^3/uL RBC (4.63-6.08) x10^6/uL Hgb (13.7-17.5) g/dL Hct (40.1-51.0) % MCV (79.0-92.2) fL MCH (25.7-32.2) pg MCHC (32.3-36.5) g/dL RDW (11.6-14.4) % Plt Count (163-337) x10^3/uL MPV (9.4-12.4) fL Sodium (135-145) mmol/L Potassium (3.5-5.1) mmol/L Chloride (98-107) mmol/L Carbon Dioxide (22-30) mmol/L Anion Gap (5-15) MEQ/L BUN (9-20) mg/dL Creatinine (0.66-1.25) mg/dL Estimated GFR ML/MIN Glucose (74-106) mg/dL POC Glucometer 221 H (74 to 106) mg/dL Hemoglobin A1c (4.5-6.0) % Calcium (8.4-10.2) mg/dL Total Bilirubin (0.2-1.3) mg/dL AST (17-59) U/L ALT (0-50) U/L Alkaline Phosphatase (38-126) U/L Troponin I (0.000-0.033) ng/mL Serum Total Protein (6.3-8.2) g/dL Albumin (3.5-5.0) g/dL Urine Color (Yellow) Urine Appearance (Clear) Urine pH (4.6-8.0) Ur Specific [place] (1.005-1.030) Urine Protein (Negative) Urine Glucose (UA) (Negative) mg/dL Urine Ketones (Negative) Urine Blood (Negative) Urine Nitrite (Negative) Urine Bilirubin (Negative) Urine Urobilinogen (0.2) mg/dL Ur Leukocyte Esterase (Negative) U Hyaline Cast (Auto) (0-2) /LPF Urine Microscopic RBC (0-5) /HPF Urine Microscopic WBC (0-5) /HPF Ur Epithelial Cells (None Seen) /HPF Urine Bacteria (None Seen) /HPF Urine Culture Reflexed (NO) Urine Opiates Level (NEGATIVE) Ur Methadone (NEGATIVE) Urine Barbiturates (NEGATIVE) Ur Phencyclidine (PCP) (NEGATIVE) Urine Amphetamine (NEGATIVE) U Benzodiazepine Level (NEGATIVE) Urine Cocaine (NEGATIVE) Urine Marijuana (THC) (NEGATIVE) Radiology Exams: Radiology Procedures Category Date Time Status ABDOMEN AND PELVIS W/0 CONTRAS [CT] Stat Exams 08/30/24 13:15 Completed CHEST WITHOUT CONTRAST [CT] Stat Exams 08/30/24 13:15 Completed HEAD WITHOUT CONTRAST [CT] Stat Exams 08/30/24 09:51 Completed MRI BRAIN W/O CONTRAST [MRI] Stat Exams 08/31/24 16:04 Completed RIBS UNILATERAL W/ PA CXR Stat Exams 08/30/24 10:38 Completed Assessment/Plan (1) Seizure Current Visit: Yes Status: Acute Code(s): R56.9 - UNSPECIFIED CONVULSIONS (2) Ribs, multiple fractures Current Visit: Yes Status: Acute Code(s): S22.49XA - MULTIPLE FRACTURES OF RIBS, UNSP SIDE, INIT FOR CLOS FX (3) Abnormal CT scan, head Current Visit: No Status: Acute Code(s): R93.0 - ABNORMAL FINDINGS ON DX IMAGING OF SKULL AND HEAD, NEC (4) High anion gap metabolic acidosis Current Visit: No Status: Acute Code(s): E87.29 - OTHER ACIDOSIS (5) Leukocytosis Current Visit: Yes Status: Acute Code(s): D72.829 - ELEVATED WHITE BLOOD CELL COUNT, UNSPECIFIED (6) Dementia Current Visit: No Status: Chronic Code(s): F03.90 - UNSP DEMENTIA, UNSP SEVERITY, WITHOUT BEH/PSYCH/MOOD/ANX (7) Type II diabetes mellitus Current Visit: Yes Status: Chronic Qualifiers: 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 An area of chronic infarction with encephalomalacia involving the left occipital lobe in the parasagittal location, the Possibility of acute on chronic infarction cannot be ruled out, and an MRI brain with DWI images is advised. 2. Patchy hypodensities in the bilateral cerebral deep and subcortical white matter region are non-specific but may represent chronic microvascular white matter ischemic changes, However, the possibility of underlying age-indeterminate ischemic insult cannot be entirely excluded if clinically warranted further evaluation with MRI with DWI images can be obtained. 3. Chronic Lacunar infarcts in the bilateral basal ganglia. Early changes of stroke may not be detected on a CT scan. If there is a strong clinical suspicion of stroke, then an MRI with diffusion-weighted imaging is suggested. 08/31 - no overnight events - EGG and MRI completed and pending neurology eval - UDS negative Code(s): R56.9 - UNSPECIFIED CONVULSIONS (2) Ribs, multiple fractures Current Visit: Yes Status: Acute Assessment & Plan: IMPRESSION: 1. Acute nondisplaced fractures along the right 7th and 8th anterior ribs are seen. 2. A nondisplaced fracture along the posterior end of the right 12th rib is seen. 3. No sizeable pneumothorax is seen. Disclaimer: A subtle bone abnormality or fracture may not be readily apparent on x-rays, thus clinical correlation and further imaging including follow-up CT, MRI, or follow-up x-rays are advised as needed. 08/31 - pain well controlled with narcotic pain med Code(s): S22.49XA - MULTIPLE FRACTURES OF RIBS, UNSP SIDE, INIT FOR CLOS FX (3) Abnormal CT scan, head Current Visit: No Status: Acute Assessment & Plan: - CT head IMPRESSION: 1. An area of chronic infarction with encephalomalacia involving the left occipital lobe in the parasagittal location, the Possibility of acute on chronic infarction cannot be ruled out, and an MRI brain with DWI images is advised. 2. Patchy hypodensities in the bilateral cerebral deep and subcortical white matter region are non-specific but may represent chronic microvascular white matter ischemic changes, However, the possibility of underlying age-indeterminate ischemic insult cannot be entirely excluded if clinically warranted further evaluation with MRI with DWI images can be obtained. 3. Chronic Lacunar infarcts in the bilateral basal ganglia. - MRI tomorrow 08/31 - MRI: IMPRESSION: 1. No hyperacute or acute infarctions could be depicted. 2. Cystic encephalomalacic changes are seen in the left mesial occipital lobe with reduced cerebral volume. 3. Age-related brain involutional changes. 4. Advanced chronic microvascular ischemic angiopathy with possible subcortical arteriosclerotic encephalopathy, clinical correlation is needed, Fazekas III. 5. Findings similar to CT dated 08/30/2024. - EEG reviewed and shows slowing - neurology re-consult to review results Code(s): R93.0 - ABNORMAL FINDINGS ON DX IMAGING OF SKULL AND HEAD, NEC (4) High anion gap metabolic acidosis Current Visit: No Status: Acute Assessment & Plan: - Bicarb gtt - Co2 16 - anion gap 21.2 08/31 - resolved - bicarb gtt stopped Code(s): E87.29 - OTHER ACIDOSIS (5) Leukocytosis Current Visit: Yes Status: Acute Assessment & Plan: - WBC 15.6 - UA pending - CBC, CMP reviewed 08/11 - WBC 7.5 - UA reviewed - CBC, CMP reviewed Code(s): D72.829 - ELEVATED WHITE BLOOD CELL COUNT, UNSPECIFIED (6) Dementia Current Visit: No Status: Chronic Assessment & Plan: - continue home meds Code(s): F03.90 - UNSP DEMENTIA, UNSP SEVERITY, WITHOUT BEH/PSYCH/MOOD/ANX (7) Type II diabetes mellitus Current Visit: Yes Status: Chronic Qualifiers: 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 Code status: SCO/DNR
--- NOTE | 2024-08-31 16:18 | PCM.DS ---
Discharge Summary Date of Admission: 08/30/24 15:24 Date of Discharge: 08/31/24 Admitting Physician: SALVADOR CELIS MD Consults: Consults on Case 08/30/24 11:28 Tele-Health Consult ROUTINE Primary Care Provider: JOHN WOO Allergies Allergies erythromycin base Allergy (Mild, Verified 08/30/24 09:57) [facility] Summary - Hospital Course Hospital Course: 08/30/24 is a 59 year old male with history of dementia, TIAs/stroke without significant residual weakness on Eliquis, COPD/tobacco use. He was brought to the ER by EMS after patient has a seizure-like activity prior to arrival. Patient apparently was trying to light his cigarette and noticed he leaned forward with stiffening of his upper extremities and fell sideways onto the chair hitting his ribs against it. Did not hit his head. Patient was snoring immediately when was at the scene, agitated and confused and slowly getting along, was not back to his baseline until after arrival in the ER. Patient has baseline dementia with not full orientation but moving all 4 extremities and following most of the commands. Not in any distress. No history of seizures before. Patient is made stroke activated and prompt CT head without contrast was obtained which showed old changes and no obvious bleed, infarct. Prompt [facility] neurology consult obtained in ER. Dr. Donovan neurology has reviewed CT films and did not think patient has anything acute and agree that patient has new onset seizures and recommended starting him on Keppra loading dose followed by oral 500 mg twice daily and obtaining inpatient MRI brain without contrast to rule out any ischemic event. In the ER he ws given IV fluids, workup showed white count of 15, lactate of 1.7, chemistries with some elevation in the anion gap and normal renal functions. Has some elevated transaminases in 60s. EKG showed sinus rhythm with no acute ST elevations. X-rays rib series showed right seventh and eighth ribs nondisplaced fracture and also fracture 12th rib with no pneumothorax. CT chest and abdomen pelvis completed by ER physician because of 12th rib fracture to make sure patient does not have any hepatic injury and they are both negative for any acute finding other than rib fractures. Pt has no c/o pain at this time. Awaiting formal neurology evaluation report. Family does not want [facility] OP f/u. He is at his baseline dementia per family. Will have PT eval for needs in AM. He denies any further concerns at this time. 08/31/24 Pt resting in bed. He did not have any seizures overnight. He states he feels fine and at baseline mental function. Neurology re-consulted for further eval of EEG and MRI results today. Discussed no new concerns and can f/u OP with neurology. He denies CP, SOB, abd. pain, N/V/D. PT to eval for home needs. Labs overall improved. He denies any pain. - Vitals & Intake/Output Vital Signs: Vital Signs Temperature 97.8 F 08/31/24 12:00 Pulse Rate 99 H 08/31/24 12:00 Respiratory Rate 17 08/31/24 12:00 Blood Pressure 126/75 08/31/24 12:00 O2 Sat by Pulse Oximetry 92 L 08/31/24 12:00 Intake & Output: Intake & Output 08/29/24 08/30/24 08/31/24 09/01/24 11:59 11:59 11:59 11:59 Intake Total 2601 240 Balance 2601 240 Weight 82.9 kg 80.6 kg - Lab Result Diagrams: 08/31/24 06:28 08/31/24 06:28 Lab Results-Last 24 Hrs: Lab Results-Last 24 Hours 08/30/24 08/30/24 08/30/24 Range/Units 15:00 16:58 18:57 WBC (4.23-9.07) x10^3/uL RBC (4.63-6.08) x10^6/uL Hgb (13.7-17.5) g/dL Hct (40.1-51.0) % MCV (79.0-92.2) fL MCH (25.7-32.2) pg MCHC (32.3-36.5) g/dL RDW (11.6-14.4) % Plt Count (163-337) x10^3/uL MPV (9.4-12.4) fL Sodium 139 (135-145) mmol/L Potassium 4.1 (3.5-5.1) mmol/L Chloride 108 H (98-107) mmol/L Carbon Dioxide 13 L* (22-30) mmol/L Anion Gap 21.3 H (5-15) MEQ/L BUN 11 (9-20) mg/dL Creatinine 0.66 (0.66-1.25) mg/dL Estimated GFR 106.7 ML/MIN Glucose 171 H (74-106) mg/dL POC Glucometer 138 H (74 to 106) mg/dL Hemoglobin A1c (4.5-6.0) % Calcium 9.1 (8.4-10.2) mg/dL Total Bilirubin 0.70 (0.2-1.3) mg/dL AST 116 H (17-59) U/L ALT 76 H (0-50) U/L Alkaline Phosphatase 79 (38-126) U/L Troponin I < 0.012 (0.000-0.033) ng/mL Serum Total Protein 7.9 (6.3-8.2) g/dL Albumin 4.8 (3.5-5.0) g/dL Urine Color (Yellow) Urine Appearance (Clear) Urine pH (4.6-8.0) Ur Specific [place] (1.005-1.030) Urine Protein (Negative) Urine Glucose (UA) (Negative) mg/dL Urine Ketones (Negative) Urine Blood (Negative) Urine Nitrite (Negative) Urine Bilirubin (Negative) Urine Urobilinogen (0.2) mg/dL Ur Leukocyte Esterase (Negative) U Hyaline Cast (Auto) (0-2) /LPF Urine Microscopic RBC (0-5) /HPF Urine Microscopic WBC (0-5) /HPF Ur Epithelial Cells (None Seen) /HPF Urine Bacteria (None Seen) /HPF Urine Culture Reflexed (NO) Urine Opiates Level (NEGATIVE) Ur Methadone (NEGATIVE) Urine Barbiturates (NEGATIVE) Ur Phencyclidine (PCP) (NEGATIVE) Urine Amphetamine (NEGATIVE) U Benzodiazepine Level (NEGATIVE) Urine Cocaine (NEGATIVE) Urine Marijuana (THC) (NEGATIVE) 08/30/24 08/31/24 08/31/24 Range/Units 21:21 04:06 04:06 WBC (4.23-9.07) x10^3/uL RBC (4.63-6.08) x10^6/uL Hgb (13.7-17.5) g/dL Hct (40.1-51.0) % MCV (79.0-92.2) fL MCH (25.7-32.2) pg MCHC (32.3-36.5) g/dL RDW (11.6-14.4) % Plt Count (163-337) x10^3/uL MPV (9.4-12.4) fL Sodium (135-145) mmol/L Potassium (3.5-5.1) mmol/L Chloride (98-107) mmol/L Carbon Dioxide (22-30) mmol/L Anion Gap (5-15) MEQ/L BUN (9-20) mg/dL Creatinine (0.66-1.25) mg/dL Estimated GFR ML/MIN Glucose (74-106) mg/dL POC Glucometer 330 H (74 to 106) mg/dL Hemoglobin A1c (4.5-6.0) % Calcium (8.4-10.2) mg/dL Total Bilirubin (0.2-1.3) mg/dL AST (17-59) U/L ALT (0-50) U/L Alkaline Phosphatase (38-126) U/L Troponin I (0.000-0.033) ng/mL Serum Total Protein (6.3-8.2) g/dL Albumin (3.5-5.0) g/dL Urine Color Yellow (Yellow) Urine Appearance Clear (Clear) Urine pH 6.5 (4.6-8.0) Ur Specific [place] >=1.030 A (1.005-1.030) Urine Protein Negative (Negative) Urine Glucose (UA) 500 A (Negative) mg/dL Urine Ketones Negative (Negative) Urine Blood Negative (Negative) Urine Nitrite Negative (Negative) Urine Bilirubin Negative (Negative) Urine Urobilinogen 1.0 A (0.2) mg/dL Ur Leukocyte Esterase Negative (Negative) U Hyaline Cast (Auto) NONE SEEN (0-2) /LPF Urine Microscopic RBC 0-2 (0-5) /HPF Urine Microscopic WBC 0-2 (0-5) /HPF Ur Epithelial Cells None Seen (None Seen) /HPF Urine Bacteria None Seen (None Seen) /HPF Urine Culture Reflexed NO (NO) Urine Opiates Level NEGATIVE (NEGATIVE) Ur Methadone NEGATIVE (NEGATIVE) Urine Barbiturates NEGATIVE (NEGATIVE) Ur Phencyclidine (PCP) NEGATIVE (NEGATIVE) Urine Amphetamine NEGATIVE (NEGATIVE) U Benzodiazepine Level NEGATIVE (NEGATIVE) Urine Cocaine NEGATIVE (NEGATIVE) Urine Marijuana (THC) NEGATIVE (NEGATIVE) 08/31/24 08/31/24 08/31/24 Range/Units 06:28 06:28 06:28 WBC 7.5 (4.23-9.07) x10^3/uL RBC 4.56 L (4.63-6.08) x10^6/uL Hgb 15.1 (13.7-17.5) g/dL Hct 43.1 (40.1-51.0) % MCV 94.5 H (79.0-92.2) fL MCH 33.1 H (25.7-32.2) pg MCHC 35.0 (32.3-36.5) g/dL RDW 12.1 (11.6-14.4) % Plt Count 156 L (163-337) x10^3/uL MPV 9.7 (9.4-12.4) fL Sodium 139 (135-145) mmol/L Potassium 3.5 (3.5-5.1) mmol/L Chloride 102 (98-107) mmol/L Carbon Dioxide 29 (22-30) mmol/L Anion Gap 11.7 (5-15) MEQ/L BUN 9 (9-20) mg/dL Creatinine 0.68 (0.66-1.25) mg/dL Estimated GFR 105.8 ML/MIN Glucose 197 H (74-106) mg/dL POC Glucometer (74 to 106) mg/dL Hemoglobin A1c 13.70 H (4.5-6.0) % Calcium 8.8 (8.4-10.2) mg/dL Total Bilirubin 0.60 (0.2-1.3) mg/dL AST 69 H (17-59) U/L ALT 64 H (0-50) U/L Alkaline Phosphatase 79 (38-126) U/L Troponin I (0.000-0.033) ng/mL Serum Total Protein 6.7 (6.3-8.2) g/dL Albumin 4.0 (3.5-5.0) g/dL Urine Color (Yellow) Urine Appearance (Clear) Urine pH (4.6-8.0) Ur Specific [place] (1.005-1.030) Urine Protein (Negative) Urine Glucose (UA) (Negative) mg/dL Urine Ketones (Negative) Urine Blood (Negative) Urine Nitrite (Negative) Urine Bilirubin (Negative) Urine Urobilinogen (0.2) mg/dL Ur Leukocyte Esterase (Negative) U Hyaline Cast (Auto) (0-2) /LPF Urine Microscopic RBC (0-5) /HPF Urine Microscopic WBC (0-5) /HPF Ur Epithelial Cells (None Seen) /HPF Urine Bacteria (None Seen) /HPF Urine Culture Reflexed (NO) Urine Opiates Level (NEGATIVE) Ur Methadone (NEGATIVE) Urine Barbiturates (NEGATIVE) Ur Phencyclidine (PCP) (NEGATIVE) Urine Amphetamine (NEGATIVE) U Benzodiazepine Level (NEGATIVE) Urine Cocaine (NEGATIVE) Urine Marijuana (THC) (NEGATIVE) 08/31/24 08/31/24 08/31/24 Range/Units 07:52 10:00 11:22 WBC (4.23-9.07) x10^3/uL RBC (4.63-6.08) x10^6/uL Hgb (13.7-17.5) g/dL Hct (40.1-51.0) % MCV (79.0-92.2) fL MCH (25.7-32.2) pg MCHC (32.3-36.5) g/dL RDW (11.6-14.4) % Plt Count (163-337) x10^3/uL MPV (9.4-12.4) fL Sodium (135-145) mmol/L Potassium (3.5-5.1) mmol/L Chloride (98-107) mmol/L Carbon Dioxide (22-30) mmol/L Anion Gap (5-15) MEQ/L BUN (9-20) mg/dL Creatinine (0.66-1.25) mg/dL Estimated GFR ML/MIN Glucose (74-106) mg/dL POC Glucometer 182 H 262 H 221 H (74 to 106) mg/dL Hemoglobin A1c (4.5-6.0) % Calcium (8.4-10.2) mg/dL Total Bilirubin (0.2-1.3) mg/dL AST (17-59) U/L ALT (0-50) U/L Alkaline Phosphatase (38-126) U/L Troponin I (0.000-0.033) ng/mL Serum Total Protein (6.3-8.2) g/dL Albumin (3.5-5.0) g/dL Urine Color (Yellow) Urine Appearance (Clear) Urine pH (4.6-8.0) Ur Specific [place] (1.005-1.030) Urine Protein (Negative) Urine Glucose (UA) (Negative) mg/dL Urine Ketones (Negative) Urine Blood (Negative) Urine Nitrite (Negative) Urine Bilirubin (Negative) Urine Urobilinogen (0.2) mg/dL Ur Leukocyte Esterase (Negative) U Hyaline Cast (Auto) (0-2) /LPF Urine Microscopic RBC (0-5) /HPF Urine Microscopic WBC (0-5) /HPF Ur Epithelial Cells (None Seen) /HPF Urine Bacteria (None Seen) /HPF Urine Culture Reflexed (NO) Urine Opiates Level (NEGATIVE) Ur Methadone (NEGATIVE) Urine Barbiturates (NEGATIVE) Ur Phencyclidine (PCP) (NEGATIVE) Urine Amphetamine (NEGATIVE) U Benzodiazepine Level (NEGATIVE) Urine Cocaine (NEGATIVE) Urine Marijuana (THC) (NEGATIVE) Micro Results-Entire Visit: Accuchecks Date 08/31/24 Date 08/31/24 Date 08/30/24 Date 08/30/24 Time 11:59 Time 08:01 Time 16:30 - Radiology Exams Ordered Rad Exams-Entire Visit: Radiology Procedures Category Date Time Status ABDOMEN AND PELVIS W/0 CONTRAS [CT] Stat Exams 08/30/24 13:15 Completed CHEST WITHOUT CONTRAST [CT] Stat Exams 08/30/24 13:15 Completed HEAD WITHOUT CONTRAST [CT] Stat Exams 08/30/24 09:51 Completed MRI BRAIN W/O CONTRAST [MRI] Stat Exams 08/31/24 16:04 Completed RIBS UNILATERAL W/ PA CXR Stat Exams 08/30/24 10:38 Completed - Procedures and Test Procedures and Tests throughout Hospitalization: Therapy Orders & Screens 08/30/24 13:37 EEG 41-60 Minutes (Normal) ONCE Comment: Reason For Exam: 08/30/24 15:31 Respiratory Therapy Consult ONCE Comment: Reason For Exam: 08/30/24 15:42 Oxygen NASAL CANNULA 2 lpm Comment: 08/30/24 16:09 PT Eval & Treat ( Order) ONCE Reason for Eval:: new onset seizure, home needs Diagnosis: seizure 08/31/24 08:00 Smoking Cessation Education ONCE Comment: Diagnosis: seizure, fall Smoking Status: Current every day smoker How long have you smoked: 20 yrs Have you smoked in the past 12 months: Yes Approximately how many cigarettes per day: 21 Do you dip or chew tobacco: No Discharge Exam General Appearance: no apparent distress, alert Neurologic Exam: alert, 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, cooperative, normal mood/affect, nml cerebellar function, sensation nml, No motor deficits Eye Exam: PERRL, EOMI, eyes nml inspection Ears, Nose, Throat Exam: normal ENT inspection, pharynx normal, moist mucous membranes Neck Exam: normal inspection, non-tender, supple, full range of motion Respiratory Exam: normal breath sounds, lungs clear, No respiratory distress Cardiovascular Exam: regular rate/rhythm, normal heart sounds Gastrointestinal/Abdomen Exam: soft, No tenderness, No mass Male Genitalia Exam: deferred Rectal Exam: deferred Back Exam: normal inspection, normal range of motion, No CVA tenderness, No vertebral tenderness Extremity Exam: normal inspection, normal range of motion Skin Exam: normal color, warm, dry Final Diagnosis/Problem List - Final Discharge Diagnosis/Problem (1) Seizure Current Visit: Yes Status: Acute Code(s): R56.9 - UNSPECIFIED CONVULSIONS (2) Ribs, multiple fractures Current Visit: Yes Status: Acute Code(s): S22.49XA - MULTIPLE FRACTURES OF RIBS, UNSP SIDE, INIT FOR CLOS FX (3) Abnormal CT scan, head Current Visit: No Status: Acute Code(s): R93.0 - ABNORMAL FINDINGS ON DX IMAGING OF SKULL AND HEAD, NEC (4) High anion gap metabolic acidosis Current Visit: No Status: Acute Code(s): E87.29 - OTHER ACIDOSIS (5) Leukocytosis Current Visit: Yes Status: Acute Code(s): D72.829 - ELEVATED WHITE BLOOD CELL COUNT, UNSPECIFIED (6) Dementia Current Visit: No Status: Chronic Code(s): F03.90 - UNSP DEMENTIA, UNSP SEVERITY, WITHOUT BEH/PSYCH/MOOD/ANX (7) Type II diabetes mellitus Current Visit: Yes Status: Chronic Assessment & Plan: (1) Seizure Current Visit: Yes Status: Acute Assessment & Plan: - Neuro consult in ER- awaiting report - Keppra IV started in ER - Will start Keppra 500mg PO BID until neuro recs back - Family does not want OP referral to [place] in [facility] - Seizure precautions - CBC, CMP reviewed - UA pending - BC x2 pending - norco and tyelnol PRN pain - MRI brain - neuro checks - CT head: 1. An area of chronic infarction with encephalomalacia involving the left occipital lobe in the parasagittal location, the Possibility of acute on chronic infarction cannot be ruled out, and an MRI brain with DWI images is advised. 2. Patchy hypodensities in the bilateral cerebral deep and subcortical white matter region are non-specific but may represent chronic microvascular white matter ischemic changes, However, the possibility of underlying age-indeterminate ischemic insult cannot be entirely excluded if clinically warranted further evaluation with MRI with DWI images can be obtained. 3. Chronic Lacunar infarcts in the bilateral basal ganglia. Early changes of stroke may not be detected on a CT scan. If there is a strong clinical suspicion of stroke, then an MRI with diffusion-weighted imaging is suggested. 08/31 - no overnight events - EGG and MRI completed and neurology evaluation- ok to d/c and f/u OP with neurology - UDS negative - Family refused any OP assistance and wants to f/u with Dr. Woo Code(s): R56.9 - UNSPECIFIED CONVULSIONS (2) Ribs, multiple fractures Current Visit: Yes Status: Acute Assessment & Plan: IMPRESSION: 1. Acute nondisplaced fractures along the right 7th and 8th anterior ribs are seen. 2. A nondisplaced fracture along the posterior end of the right 12th rib is seen. 3. No sizeable pneumothorax is seen. Disclaimer: A subtle bone abnormality or fracture may not be readily apparent on x-rays, thus clinical correlation and further imaging including follow-up CT, MRI, or follow-up x-rays are advised as needed. 08/31 - pain well controlled with narcotic pain med Code(s): S22.49XA - MULTIPLE FRACTURES OF RIBS, UNSP SIDE, INIT FOR CLOS FX (3) Abnormal CT scan, head Current Visit: No Status: Acute Assessment & Plan: - CT head IMPRESSION: 1. An area of chronic infarction with encephalomalacia involving the left occipital lobe in the parasagittal location, the Possibility of acute on chronic infarction cannot be ruled out, and an MRI brain with DWI images is advised. 2. Patchy hypodensities in the bilateral cerebral deep and subcortical white matter region are non-specific but may represent chronic microvascular white matter ischemic changes, However, the possibility of underlying age-indeterminate ischemic insult cannot be entirely excluded if clinically warranted further evaluation with MRI with DWI images can be obtained. 3. Chronic Lacunar infarcts in the bilateral basal ganglia. - MRI tomorrow 08/31 - MRI: IMPRESSION: 1. No hyperacute or acute infarctions could be depicted. 2. Cystic encephalomalacic changes are seen in the left mesial occipital lobe with reduced cerebral volume. 3. Age-related brain involutional changes. 4. Advanced chronic microvascular ischemic angiopathy with possible subcortical arteriosclerotic encephalopathy, clinical correlation is needed, Fazekas III. 5. Findings similar to CT dated 08/30/2024. - EEG reviewed and shows slowing - neurology re-consult to review results Code(s): R93.0 - ABNORMAL FINDINGS ON DX IMAGING OF SKULL AND HEAD, NEC (4) High anion gap metabolic acidosis Current Visit: No Status: Acute Assessment & Plan: - Bicarb gtt - Co2 16 - anion gap 21.2 08/31 - resolved - bicarb gtt stopped Code(s): E87.29 - OTHER ACIDOSIS (5) Leukocytosis Current Visit: Yes Status: Acute Assessment & Plan: - WBC 15.6 - UA pending - CBC, CMP reviewed 08/11 - WBC 7.5 - UA reviewed - CBC, CMP reviewed Code(s): D72.829 - ELEVATED WHITE BLOOD CELL COUNT, UNSPECIFIED (6) Dementia Current Visit: No Status: Chronic Assessment & Plan: - continue home meds Code(s): F03.90 - UNSP DEMENTIA, UNSP SEVERITY, WITHOUT BEH/PSYCH/MOOD/ANX (7) Type II diabetes mellitus Current Visit: Yes Status: Chronic Qualifiers: Diabetes mellitus lab[employer] insulin use: without [employer]orer [employer] use Diabetes mellitus complication status: without complication Qualified Code(s): E11.9 - Type 2 diabetes mellitus without complications Assessment & Plan: - accuchecks ac/hs - mod dose s/s - A1C 13.70- uncontrolled - Will provide education at d/c about the importance of controlling blood glucose - Oral controlled at home - Will need to f/u OP with PCP for better management - Discharge Discharge Date: 08/31/24 Disposition: Home, Self-Care Condition: Stable Prescriptions: New Levetiracetam [Keppra] 500 mg PO BID 30 Days #60 tablet Continue Clopidogrel Bisulfate [PLAVIX Tablet] 75 mg PO DAILY Naproxen 375 mg [Naprosyn 375 mg] 375 mg PO BID Atorvastatin Calcium 80 mg PO DAILY Levothyroxine Sodium [Euthyrox] 50 mcg PO DAILY Memantine HCl 5 mg [Namenda 5 MG] 5 mg PO BID glipiZIDE [Glipizide ER] 5 mg PO BID Meclizine HCl 25 mg [Antivert 25 mg] 25 mg PO TID Cyclobenzaprine HCl 10 mg [Cyclobenzaprine 10 MG] 10 mg PO TID Duloxetine HCl 60 mg PO DAILY Duloxetine HCl 30 mg [Cymbalta 30 MG Capsule] 30 mg PO DAILY Donepezil HCl 10 mg [Aricept 10 MG] 10 mg PO DAILY Venlafaxine HCl [Venlafaxine HCl ER] 150 mg PO DAILY Empagliflozin [Jardiance] 25 mg PO DAILY Follow up with: JOHN WOO [Primary Care Provider] - 09/06/24 9:45 am LION KABA DO [NON-STAFF PHY W/O PRIVILEGES] -
[2024-08-31 17:09] VITALS: BP 130/72; PULSE 89; RESP 16; TEMP 98.1; O2SAT 93
== END 2024-08-31 16:58 | disposition home or self-care (01) ==
LOC: ED 09:49 → MED SURG 15:24
PROVIDERS: ADMIT Internal Medicine; ATTEND Internal Medicine
DX: R56.9 Unspecified convulsions (principal); S22.41XA Multiple fractures of ribs, right side, initial encounter for closed fracture; R93.0 Abnormal findings on diagnostic imaging of skull and head, not elsewhere classified; E87.29 Other acidosis; D72.829 Elevated white blood cell count, unspecified; F03.90 Unspecified dementia, unspecified severity, without behavioral disturbance, psychotic disturbance, mood disturbance, and anxiety; E11.9 Type 2 diabetes mellitus without complications; W19.XXXA Unspecified fall, initial encounter; Z79.01 Long term (current) use of anticoagulants; Z79.899 Other long term (current) drug therapy; E78.5 Hyperlipidemia, unspecified; I25.2 Old myocardial infarction; F17.200 Nicotine dependence, unspecified, uncomplicated
CPT/HCPCS: 36415; 70450; 70551; 71101; 71250; 74176; 80053; 80307; 81001; 82947; 83036; 83605; 83735; 84443; 84484; 85025; 85027; 85610; 87040; 93005; 93268; 94760; 95812; 97161; 99285; G0378; Q3014; J1817; J1953; A9270-GY